=== PATIENT | female | born 2000 | race Hispanic/Latino ===

== ENCOUNTER 2023-07-16 18:20 | Emergency (ER) | payer OTHER ==
--- OUTSIDE RECORDS SUMMARY | 2023-07-16 18:38 | XMS REPORT | Continuity of Care Document ---
:2000 Author Organization [facility] t Address [address] [facility] [address] [place] [id number] Care Team Providers Name Role Phone Juan Francisco Elizabeth Attending Clinician Unavailable Davion RODRIGUEZ, Saloni Avina Attending Clinician Nataly Rios PA-C Attending Clinician Doctor Unassigned, [place] Attending Clinician Unavailable Payers Payer Name Policy Type Policy Number Effective Date Expiration Date S ource Problems Condition Condition Condition Status Onset Resolution Last Treating Co mments Source Name Details Category Date Date Treatment Clinician Date Morbid Morbid Disease Active Univers obesity obesity 2-13 [place] of with [place] mass index 00 [place] dical of of Branch 40.0-49.9 40.0-49.9 Presence Presence Disease Active Unive rs of of 52 of of 52 2-13 ity of mg mg 00:00: [place] levonorges levonorges 00 Me dical trel-relea trel-relea Br anch sing sing intrauteri intrauteri ne device ne device (IUD) (IUD) Acne Acne Disease Active Univers vulgaris vulgaris 8-15 ity of 00:00: [place] [address] Medical Branch Atopic Atopic Disease Active Overview: Univer s dermatitis dermatitis 8-15 ICD10 it y of and and 00:00: Diagnosis [place] related related 00 Term Medical 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 Allergic Allergic Problem Active Commo n rhinitis, rhinitis, Spir it unspecifie unspecifie - [facility] seasonalit seasonalit Shana kes y, y, Medical unspecifie unspecifie Ce nter d trigger d trigger Family Family Problem Active Common planning planning Spirit counseling counseling - [facility] Low back Low back Problem Active Commo n pain pain Spirit - [facility] Other Other Problem Active Common chronic chronic Spirit pain pain [facility] Allergies, Adverse Reactions, Alerts Allergy Allergy Status Severity Reaction(s) Onset Inactive Treating Comm ents Source Name Type Date Date Clinician Rustam Adverse Active Info Not Common (Diagnos Reaction Available Spi rit tic) [facility] Social History Social Habit Start Date Stop Date Quantity Comments Source History SDVT University o f Alcohol Std [place] Medical Drinks Branch History SDVT University o f Alcohol Binge [place] Medic al Branch Tobacco Comment No smoker in Univers ity of household [place] [facility] Sex Assigned At Universit y of [place] [facility] [place] Alcohol intake 2020-01-02 2020-01-02 University of 00:00:00 00:00:00 [place] [facility] History SDOH 2019-12-26 2019-12-26 1 University o f Alcohol Frequency 00:00:00 00:00:00 [facility] edical [place] Smoking Status Start Date Stop Date Source Never smoker [facility] Medications Ordered Filled Start Stop Current Ordering Indication Dosage Frequency Signature Comments Components Source Medication Medication Date Date Medication? 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 levonorgest 2020- No [id number] 1{devic 1 Device Univers rel 2-13 -13 e} by ity of (MIRENA) 20 00:00: 00:00 Intrauteri [place] mcg/24 00 :00 ne route Medical hours (5 once now Branch yrs) 52 mg for 1 IUD dose. miSOPROStol Yes [id number] Take one Univers 200 mcg 2-06 tablet ity of tablet 00:00: night [place] 00 before Medical procedure, Branch then take one tablet morning of procedure miSOPROStol 0 Yes [id number] Take one Univers 200 mcg 2-06 tablet ity of tablet 00:00: night [place] 00 before Medical procedure, Branch then take one tablet morning of procedure miSOPROStol 0 2020- No [id number] Take one Univers 200 mcg 2-06 02-13 tablet ity of tablet 00:00: 00:00 night [place] 00 :00 before Medical procedure, Branch then take one tablet morning of procedure miSOPROStol 2019-0 2020- No [id number] Take one Univers 200 mcg 2-06 02-13 tablet ity of tablet 00:00: 00:00 night [place] 00 :00 before Medical procedure, Branch then take one tablet morning of procedure Meloxicam Meloxicam 2020- No Elizabeth 1 tablet Common 12-10 02-20 Mill[place] as needed Spir it 00:00: 00:00 for pain; - [facility] 00 :00 take with [facility] or [facility] fluocinonid Yes [id number] Apply to Univers e (LIDEX) 8-15 area(s) 2 ity o f 0.05 % 00:00: (two) [place] ointment 00 times Medical daily. Branch tretinoin Yes [id number] Apply to Univers microsphere 8-15 affected ity of s (RETIN-A 00:00: [place] MICRO PUMP) 00 bedtime. Medi hafsa 0.04 % gel Branch clindamycin Yes [id number] Apply to Univers -benzoyl 8-15 area(s) ity of peroxide 00:00: every [place] (BENZACLIN) 00 morning. Medi hafsa gel Branch fluocinonid Yes [id number] Apply to Univers e (LIDEX) 8-15 area(s) 2 ity o f 0.05 % 00:00: (two) [place] ointment 00 times Medical daily. Branch tretinoin Yes [id number] Apply to Univers microsphere 8-15 affected ity of s (RETIN-A 00:00: area(s) [place] MICRO PUMP) 00 bedtime. Medi hafsa 0.04 % gel Branch clindamycin Yes [id number] Apply to Univers -benzoyl 8-15 area(s) ity of peroxide 00:00: every [place] (BENZACLIN) 00 morning. Medi hafsa gel Branch fluocinonid Yes [id number] Apply to Univers e (LIDEX) 8-15 area(s) 2 ity o f 0.05 % 00:00: (two) [place] ointment 00 times Medical daily. Branch tretinoin Yes [id number] Apply to Univers microsphere 8-15 affected ity of s (RETIN-A 00:00: area(s) [place] MICRO PUMP) 00 bedtime. Medi hafsa 0.04 % gel Branch clindamycin Yes [id number] Apply to Univers -benzoyl 8-15 area(s) ity of peroxide 00:00: every [place] (BENZACLIN) 00 morning. Medi hafsa gel Branch fluocinonid 2012- Yes [id number] Apply to Univers e (LIDEX) 8-15 area(s) 2 ity o f 0.05 % 00:00: (two) [place] ointment 00 times Medical daily. Branch tretinoin Yes [id number] Apply to Univers microsphere 8-15 affected ity of s (RETIN-A 00:00: area(s) at [place] MICRO PUMP) 00 bedtime. Medi hafsa 0.04 % gel Branch clindamycin Yes [id number] Apply to Univers -benzoyl 8-15 area(s) ity of peroxide 00:00: every [place] (BENZACLIN) 00 morning. Medi hafsa gel Branch fluocinonid 2012- Yes [id number] Apply to Univers e (LIDEX) 8-15 area(s) 2 ity o f 0.05 % 00:00: (two) [place] ointment 00 times Medical daily. Branch tretinoin Yes [id number] Apply to Univers microsphere 8-15 affected ity of s (RETIN-A 00:00: area(s) at [place] MICRO PUMP) 00 bedtime. Medi hafsa 0.04 % gel Branch clindamycin Yes [id number] Apply to Univers -benzoyl 8-15 area(s) ity of peroxide 00:00: every [place] (BENZACLIN) 00 morning. Medi hafsa gel Branch fluocinonid Yes [id number] Apply to Univers e (LIDEX) 8-15 area(s) 2 ity o f 0.05 % 00:00: (two) [place] ointment 00 times Medical daily. Branch tretinoin Yes [id number] Apply to Univers microsphere 8-15 affected ity of s (RETIN-A 00:00: area(s) at [place] MICRO PUMP) 00 bedtime. Medi hafsa 0.04 % gel Branch clindamycin Yes [id number] Apply to Univers -benzoyl 8-15 area(s) ity of peroxide 00:00: every [place] (BENZACLIN) 00 morning. Medi hafsa gel Branch fluticasone Yes Apply BID U nivers (CUTIVATE) 3-14 to eczema ity of 0.05 % 00:00: prn itchy [place] cream 00 Medical Branch doxycycline Yes 100mg Take 1 Tab Univers (VIBRA-TABS 3-14 by mouth 2 it y of ) 100 mg 00:00: (two) [place] tablet 00 times Medical daily. Branch clindamycin Yes Apply to Un fe -benzoyl 3-14 affected ity of peroxide 00:00: area(s) [place] (BENZACLIN 00 every Medical PUMP) gel morning. Branch fluticasone Yes Apply BID U nivers (CUTIVATE) 3-14 to eczema ity of 0.05 % 00:00: prn itchy [place] cream 00 Medical Branch doxycycline Yes 100mg Take 1 Tab Univers (VIBRA-TABS 3-14 by mouth 2 it y of ) 100 mg 00:00: (two) [place] tablet 00 times Medical daily. Branch clindamycin Yes Apply to Un fe -benzoyl 3-14 affected ity of peroxide 00:00: area(s) [place] (BENZACLIN 00 every Medical PUMP) gel morning. Branch fluticasone Yes Apply BID U nivers (CUTIVATE) 3-14 to eczema ity of 0.05 % 00:00: prn itchy [place] cream 00 Medical Branch doxycycline Yes 100mg Take 1 Tab Univers (VIBRA-TABS 3-14 by mouth 2 it y of ) 100 mg 00:00: (two) [place] tablet 00 times Medical daily. Branch clindamycin Yes Apply to Un fe -benzoyl 3-14 affected ity of peroxide 00:00: area(s) [place] (BENZACLIN 00 every Medical PUMP) gel morning. Branch fluticasone Yes Apply BID U nivers (CUTIVATE) 3-14 to eczema ity of 0.05 % 00:00: prn itchy [place] cream 00 Medical Branch doxycycline Yes 100mg Take 1 Tab Univers (VIBRA-TABS 3-14 by mouth 2 it y of ) 100 mg 00:00: (two) [place] tablet 00 times Medical daily. Branch clindamycin Yes Apply to Un fe -benzoyl 3-14 affected ity of peroxide 00:00: area(s) [place] (BENZACLIN 00 every Medical PUMP) gel morning. Branch fluticasone Yes Apply BID U nivers (CUTIVATE) 3-14 to eczema ity of 0.05 % 00:00: prn itchy [place] cream 00 Medical Branch doxycycline Yes 100mg Take 1 Tab Univers (VIBRA-TABS 3-14 by mouth 2 it y of ) 100 mg 00:00: (two) [place] tablet 00 times Medical daily. Branch doxycycline Yes 100mg Take 1 Tab Univers (VIBRA-TABS 3-14 by mouth 2 it y of ) 100 mg 00:00: (two) [place] tablet 00 times Medical daily. Branch clindamycin Yes Apply to Un fe -benzoyl 3-14 affected ity of peroxide 00:00: area(s) [place] (BENZACLIN 00 every Medical PUMP) gel morning. Branch fluticasone Yes Apply BID U nivers (CUTIVATE) 3-14 to eczema ity of 0.05 % 00:00: prn itchy [place] cream [address] [place] [address] Branch clindamycin Yes Apply to Un fe -benzoyl 3-14 affected ity of peroxide 00:00: area(s) [place] (BENZACLIN 00 every Medical PUMP) gel morning. Branch Vital Signs Vital Name Observation Time Observation Value Comments Source BMI 2020-01-02 21:18:00 46.80 kg/m2 [facility] Systolic blood 2020-01-02 21:18:00 126 mm[Hg] Univer sity of [facility] Diastolic blood 2020-01-02 21:18:00 88 mm[Hg] Unive rsity of [facility] Heart rate 2020-01-02 21:18:00 84 /min [facility] Body temperature 2020-01-02 21:18:00 36.78 Cori [facility] Respiratory rate 2020-01-02 21:18:00 18 /min [facility] Body height 2020-01-02 21:18:00 [facility] weight 2020-01-02 21:18:00 117.935 kg [facility] Systolic blood 2019-12-26 16:20:00 123 mm[Hg] Univer sity of [facility] Diastolic blood 2019-12-26 16:20:00 88 mm[Hg] Unive rsity of [facility] Heart rate 2019-12-26 16:20:00 85 /min [facility] Body temperature 2019-12-26 16:20:00 36.83 Cori [facility] Respiratory rate 2019-12-26 16:20:00 18 /min [facility] Body height 2019-12-26 16:20:00 157[facility]5 [facility] Body weight 2019-12-26 16:20:00 117.754 kg [facility] BMI 2019-12-26 16:20:00 47.48 kg/m2 [facility] Procedures Procedure Date / Time Performed Performing Clinician Sour e POCT TEST 2020-01-02 00:00:00 Saloni Ricardo [facility] ASSIGNMENT OF BENEFITS 2019-12-26 16:02:59 Doctor Unassigned, No [facility] Encounters Start End Encounter Admission Attending Care Care Encounter Source Date/Time Date/Time Type Type Clinicians Facility Department ID 2021-12-15 Outpatient NEO Chicas [facility] [id number] Common 11:02:13 Elizabeth [id number] [facility] 2020-01-08 2020-01-08 Telephone Saloni Ricardo [facility] [id number] Univers 00:00:00 00:00:00 Fabrice Granger [id number] i ty of [place] [id number] [place] Profess[place] [phone] La dical [place]al [address] [place] [address] 2020-01-02 2020-01-02 Office Saloni Ricardo [facility] [id number] Univers 14:52:26 15:51:41 Visit Fabrice Granger [id number] i ty of [place] [id number] [place] Profess[place] [phone] La dical [place]al [address] [place] [address] 2019-12-26 2019-12-26 Office Blanca [facility] [id number] Univers 10:05:48 10:46:43 Visit Nataly Granger [id number] i ty of [place] [id number] [place] Profess[place] [phone] La dical [place]al [address] [place] [address] 2019-12-26 2019-12-26 Orders Doctor CHEW [id number] Univers 00:00:00 00:00:00 Only Unassigned, BEATRIZ [id number] ity of [place] [facility] [id number] Maulik as [phone] [address] 2019-12-11 2019-12-11 [id number] Common 01:09:00 01:09:00 t [facility] [address] [facility] 2019-12-10 2019-12-10 [facility] [id number] Common 15:15:00 15:15:00 t [facility] [address] [facility] Results Test Description Test Time Test Comments Results Result Comments Source POCT TEST 2020-01-02 21:15:00 Test Item Value Reference Range Interpretation Comme nts POCT PREG (test code = 1605) Negative On board controls acceptable with C Line (test code = 3574) Yes POCT PREG LOT # (test code = 3575) POCT PREG TEST DATE (test code = 3576[id number] 21:15:00 Test Item Value Reference Range Interpretation Comments POCT PREG (test code = 1605) Negative On board controls acceptable with C Yes Line (test code = 3574) POCT PREG LOT # (test code = 3575) POCT PREG TEST DATE (test code = 3576) [facility]
--- NOTE | 2023-07-16 19:35 | ER ---
Nurse's Notes [facility] Name: Bert Reyes Age: 22 yrs Sex: Female : 2000 Arrival Date: 07/16/2023 Time: 18:20 Bed IW1 Private MD: Diagnosis: Presentation: 07/16 18:49 Chief complaint: Patient states: LLQ abdominal pain post intercourse, pain is resolving jl7 at this time but wants to get checked out and find out why this keeps happening. Coronavirus screen: At this time, the client does not indicate any symptoms associated with coronavirus-19. Ebola Screen: No symptoms or risks identified at this time. Initial Sepsis Screen: Does the patient meet any 2 criteria? No. Patient's initial sepsis screen is negative. Does the patient have a suspected source of infection? No. Patient's initial sepsis screen is negative. Risk Assessment: Do you want to hurt yourself or someone else? Patient reports no desire to harm self or others. Onset of symptoms is unknown. 18:49 Method Of Arrival: Ambulatory jl7 18:49 Acuity: SYLVIA 3 jl7 Triage Assessment: 18:50 General: Appears in no apparent distress. uncomfortable, Behavior is calm, cooperative, jl7 appropriate for age. Pain: Complains of pain in left lower quadrant Pain currently is 4 out of 10 on a pain scale. at worst was 10 out of 10 on a pain scale. GI: Abdomen is non-distended. 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 - Social history:: Smoking status: Patient denies any tobacco usage or history of. Screenin:24 [facility] ED Fall Risk Assessment (Adult) History of falling in the last 3 months, vc1 including since admission No falls in past 3 months (0 pts) Confusion or Disorientation No (0 pts) Intoxicated or Sedated No (0 pts) Impaired Gait No (0 pts) Mobility Assist Device Used No (0 pt) Altered Elimination No (0 pt) Score/Fall Risk Level 0 - 2 = Low Risk Oriented to surroundings, Maintained a safe environment, Educated pt \T\ family on fall prevention, incl call for assistance when getting out of bed. Abuse screen: Denies threats or abuse. Nutritional screening: No deficits noted. Tuberculosis screening: No symptoms or risk factors identified. Assessment: 19:20 Reassessment: Pt. not in room, called from lobby, unable to locate. vc1 Vital Signs: 18:49 BP 128 / 73; Pulse 76; Resp 17; Temp 97.7; Pulse Ox 100% ; Weight 88 kg; Height 5 ft. 2 jl7 in. ; Pain 4/10; 18:49 Body Mass Index 35.48 (88.00 kg, 157.48 cm) jl7 18:49 Pain Scale: Adult jl7 ED Course: 18:23 Patient arrived in ED. mr 18:34 [facility]C [facility] snw 18:34 Abhay Merida MD is Attending Physician. snw 18:50 Triage completed. jl7 18:50 Arm band placed on right wrist. jl7 19:19 Trice Kay, RN is Primary Nurse. vc1 19:34 No provider procedures requiring assistance completed. Patient did not have IV access vc1 during this emergency room visit. Administered Medications: No medications were administered Medication: 19:24 VIS not applicable for this client. vc1 Outcome: 19:34 Eloped from patient exam room, before seeing physician post triage evaluation and vc1 consult. Pt stated she wasn't hurting anymore. Could not be located when called to exam room 19:35 Patient left the ED. vc1 Signatures: Sarah Peng FNP-C BOAT DRIVER-Misti Shavonne GarciaSen, RN RN [email or web address] Trice Kay, IRMA RN vc1 Corrections: (The following items were deleted from the chart) 18:50 18:50 Allergies: NKA; jl7 jl7 19:33 19:24 Patient has correct armband on for positive identification. Bed in low position. vc1 vc1
--- NOTE | 2023-07-17 19:35 | EDPHYS ---
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 - Social history:: Smoking status: Patient denies any tobacco usage or history of. ROS: 19:36 Constitutional: Negative for fever, chills, and weight loss, Eyes: Negative for injury, snw pain, redness, and discharge, ENT: Negative for injury, pain, and discharge, Neck: Negative for injury, pain, and swelling, Cardiovascular: Negative for chest pain, palpitations, and edema, Respiratory: Negative for shortness of breath, cough, wheezing, and pleuritic chest pain, Back: Negative for injury and pain, : Negative for injury, bleeding, discharge, and swelling, MS/Extremity: Negative for injury and deformity, Skin: Negative for injury, rash, and discoloration, Neuro: Negative for headache, weakness, numbness, tingling, and seizure, Psych: Negative for depression, anxiety, suicide ideation, homicidal ideation, and hallucinations. 19:36 Abdomen/GI: Positive for abdominal cramps, of the left lower quadrant, postcoital. Vital Signs: 18:49 BP 128 / 73; Pulse 76; Resp 17; Temp 97.7; Pulse Ox 100% ; Weight 88 kg; Height 5 ft. 2 jl7 in. ; Pain 4/10; 18:49 Body Mass Index 35.48 (88.00 kg, 157.48 cm) jl7 18:49 Pain Scale: Adult jl7 MDM: 19:16 Patient medically screened. snw 19:35 Differential diagnosis: non-specific abd pain, Ovarian Torsion, Pyelonephritis, Tubal snw Ovarian Abcess. Data reviewed: vital signs, nurses notes. Awaiting: pt, no pt in bed 11 at 1917, 1925, 1935. Administered Medications: No medications were administered Disposition Summary: 07/16/23 19:35 Eloped Disposition: before being seen by provider vc1 Reason: (see nurse's notes) vc1 Signatures: Dispatcher [employer] Sarah Laird FNP-C PORTRAIT PHOTOGRAPHER-Sen Michelle RN RN jl7 Trice Kay RN RN vc1 Corrections: (The following items were deleted from the chart) 18:50 18:50 Allergies: NKA; jlMarilynn harris
== END 2023-07-16 19:35 | disposition left against medical advice (07) ==
LOC: ER 18:20
DX: Z53.21 Procedure and treatment not carried out due to patient leaving prior to being seen by health care provider (principal)
CPT/HCPCS: 99281

== ENCOUNTER 2024-11-17 15:50 | Emergency (ER) | payer OTHER ==
--- OUTSIDE RECORDS SUMMARY | 2024-11-17 15:53 | XMS REPORT | Continuity of Care Document ---
Author Name Unknown Address [address] [place] [address] [facility] [address] [place] [address] Care Team Providers Care Netezza Architect Name Role Phone Andrzej Frazier MD Primary Care Physician + [phone] Elizabeth Chicas Attending Clinician Unavailable JAYLYN EDDY Attending Clinician Unavailable Shabana Naranjo NP Attending Clinician [phone] ANDRZEJ FRAZIER Attending Clinician Unavailab ANDRZEJ Briceno Attending Clinician Unavailab SHABANA Walker Attending Clinician Unavailable SHABANA NARANJO Attending Clinician Unavailable 2, [facility] Attending Clinician Unavailable KRISTI PATEL Attending Clinician UnavailKristi Hernandez NP Attending Clinician [phone] KAREN RUBIO Attending Clinician Unavailable KAREN RUBIO Attending Clinician Unavailable Karen Rubio MD Attending Clinician [phone] DERIK RUEDA Attending Clinician Unavaila ble TRITSCHLER, CHERYAL Attending Clinician Unavaila ara Doctor Unassigned, [place] Attending Clinician U navailable DL LOWE Attending Clinician Unavailable Dl Lowe MD Attending Clinician [phone] 2, [facility] Attending Clinician Unavailable Saloni Ricardo MD Attending Clinician [phone] Nataly Rios PA-C Attending Clinician [phone] KAREN RUBIO Admitting Clinician Unavailable DERIK RUEDA Admitting Clinician UnavailDL [place] Admitting Clinician Unavailable Payers Payer Name Policy Type Policy Number Effective Date Expirati on Date Source DRE [id number] 2024 00:00:00 [facility] [id number] 2019 00:00:00 [facility] [id number] 2019 00:00:00 07-20 00:00:00 Problems Condition Name Condition Details Condition Category Status Onset Date Resolution Date Last Treatment Date Treating Clinician Comments Source Hypokalemi a Hypokalemi a Disease Active 2023-11 00:00: 00 [facility] Nausea and vomiting, unspecifie d vomiting type Nausea and vomiting, unspecifie d vomiting type Disease Active 2023-11 00:00: 00 [facility] Cannabis hyperemesi s syndrome concurrent with and due to cannabis dependence Cannabis hyperemesi s syndrome concurrent with and due to cannabis dependence Disease Active 2023-11 00:00: 00 [facility] Morbid obesity with body mass index of 40.0-49.9 Morbid obesity with body mass index of 40.0-49.9 Disease Active 01-02 00:00: 00 [facility] Acne vulgaris Acne vulgaris Disease Active 07-04 00:00: 00 [facility] Atopic dermatitis and related condition Atopic dermatitis and related condition Disease Active 07-04 00:00: 00 Overview: Formattin g of this note might be different from the original. ICD10 Diagnosis Term [employer] [facility] Allergic rhinitis, unspecifie d seasonalit y, unspecifie d trigger Allergic rhinitis, unspecifie d seasonalit y, unspecifie d trigger Problem Active [facility] Family planning counseling Family planning counseling Problem Active [facility] Low back pain Low back pain Problem Active [facility] Other chronic pain Other chronic pain Problem Active [facility] Morbid obesity with body mass index of 40.0-49.9 Morbid obesity with body mass index of 40.0-49.9 Disease Resolve d 2019- 2-13 00:00: 00 2023-08-09 00:00:00 2023-08-09 12:57:41 [facility] Presence of of 52 mg levonorges trel-relea sing intrauteri ne device (IUD) Presence of of 52 mg levonorges trel-relea sing intrauteri ne device (IUD) Disease Resolve d 2-13 00:00: 00 2023-08-09 00:00:00 2023-08-09 12:57:31 [facility] Allergies, Adverse Reactions, Alerts Allergy Name Allergy Type Status Severity Reaction(s) Onset Date Inactive Date Treating Clinician Comments Source [place] (Diagnos tic) Adverse Reaction Active Info Not Available [facility] NO KNOWN ALLERGIE S Drug Class Active [facility] Social History Social Habit Start Date Stop Date Quantity Comments Source History SDOH Alcohol Std Drinks [facility] History SDOH Alcohol Binge [facility] Gender identity [facility] Sexual orientation [facility] Alcoholic beverage intake 2024-10-29 00:00:00 2024-10-29 00:00:00 Current drinker of alcohol (finding) [facility] Alcohol intake 2023-08-09 00:00:00 2023-08-09 00:00:00 Current drinker of alcohol (finding) [facility] Tobacco Comment 2023-07-17 00:00:00 2023-07-17 00:00:00 No smoker in household [facility] Tobacco use and exposure 2023-07-17 00:00:00 2023-07-17 00:00:00 Smokeless tobacco non-user [facility] History of Social function 2023-07-17 00:00:00 2023-07-17 00:00:00 [facility] History SDOH Alcohol Frequency 2019-12-26 00:00:00 2019-12-26 00:00:00 1 [facility] Sex assigned at 2000 00:00:00 2000 00:00:00 [facility] Smoking Status Start Date Stop Date Source Never smoked tobacco [facility] Medications Ordered Medication Name Filled Medication Name Start Date Stop Date Current Medication? Ordering Clinician Indication Dosage Frequency Signature (SIG) Comments Components Source polyethylen e glycol 3350 (MIRALAX) 17 gram/dose powder 2023-11 00:00: 00 11-15 05:59 :00 Yes [id number] 17g Take 17 g by mouth in the morning and 17 g in the evening. Do all this for 15 days. [facility] ondansetron 4 mg disintegrat ing tablet 2023-11 00:00: 00 Yes [id number] 4mg Take 1 tablet by mouth every 8 (eight) hours as needed for Nausea and Vomiting (N/V). [facility] NaCl 0.9% (NS) bolus infusion 1,000 mL 2023-11 23:00: 00 10-25 00:42 :00 No 1000mL at 999 mL/hr, 1,000 mL, IV Infusion, ONCE, 1 dose, On Renee 10/24/24 at 1700, GRADY [facility] KCL (KLOR-CON M20) tablet 40 mEq 2023-11 23:00: 00 10-24 22:57 :00 No 40meq 40 mEq, Oral, ONCE, 1 dose, On Renee 10/24/24 at 1700, GRADY [facility] proMETHazin e (PHENERGAN) 25 mg in NS 50 mL IV piggyback (CNR) 2023-11 22:30: 00 10-24 23:17 :00 No 25mg 25 mg, IV Piggyback, at 200 mL/hr Administer over 15 Minutes, ONCE, 1 dose, On Renee 10/24/24 at 1630, GR[facility] iopamidol (ISOVUE 370-500 mL) injection 90 mL 2023-11 13:45: 00 10-24 13:45 :00 No [id number] 90mL 90 mL, Intravenou s, ONCE, 1 dose, On Renee 10/24/24 at 0745, Routine [facility] metoclopram leena HCl (REGLAN) injection 10 mg 2023-11 13:30: 00 10-24 13:32 :00 No 10mg 10 mg, Slow IV Push, ONCE, 1 dose, On Renee 10/24/24 at 0730, GRADY [facility] ketorolac (TORADOL) injection 30 mg 2023-11 13:00: 00 10-24 12:03 :00 No 30mg 30 mg, Slow IV Push, ONCE, 1 dose, On Renee 10/24/24 at 0700, Routine [facility] dicyclomine (BENTYL) injection 20 mg 2023-11 12:45: 00 10-24 12:04 :00 No 20mg 20 mg, Intramuscu lar, ONCE NOW, 1 dose, On Renee 10/24/24 at 0645, Routine [facility] ondansetron (ZOFRAN (PF)) injection 4 mg 2023-11 12:00: 00 10-24 12:07 :00 No 4mg 4 mg, Slow IV Push, ONCE, 1 dose, On Renee 10/24/24 at 0600, Administer over 2-5 Minutes, 2 mL [facility] dicyclomine 20 mg tablet 2023-11 00:00: 00 Yes [id number] 20mg Take 1 tablet by mouth 4 (four) times daily. [facility] metoclopram leena HCl 10 mg tablet 2023-11 00:00: 00 Yes [id number] 10mg Take 1 tablet by mouth every 6 (six) hours. [facility] famotidine 20 mg tablet 2023-11 00:00: 00 Yes [id number] 20mg Take 1 tablet by mouth in the morning and 1 tablet in the evening. [facility] iopamidol (ISOVUE 370-500 mL) injection 82 mL 07-27 18:30: 00 07-27 18:30 :00 No [id number] 82mL 82 mL, Intravenou s, ONCE, 1 dose, On Renee 07/27/23 at 1330, Routine [facility] maalox:diph enhydrAMINE :lidocaine 2 % viscous 1:1:1 ([facility]) oral suspension 15 mL 07-27 16:45: 00 07-27 17:15 :00 No 15mL 15 mL, Oral, ONCE, 1 dose, On Renee 07/27/23 at 1145, Routine [facility] FENTanyl PF (SUBLIMAZE (PF)) injection 50 mcg 07-27 16:45: 00 07-27 17:14 :00 No 50ug 50 mcg, Slow IV Push, ONCE, 1 dose, On Renee 07/27/23 at 1145, STAT [facility] ondansetron (ZOFRAN (PF)) injection 4 mg 07-27 16:45: 00 07-27 17:14 :00 No 4mg 4 mg, Slow IV Push, ONCE, 1 dose, On Renee 07/27/23 at 1145, GRADY [facility] NaCl 0.9% (NS) bolus infusion 1,000 mL 07-27 16:00: 00 07-27 18:27 :00 No 1000mL at 999 mL/hr, 1,000 mL, IV Infusion, ONCE, 1 dose, On Renee 07/27/23 at 1100, [facility] dicyclomine 20 mg tablet 07-27 00:00: 00 10-24 00:00 :00 No [id number] 20mg Take 1 tablet by mouth in the morning and 1 tablet at noon and 1 tablet in the evening. [facility] levonorgest rel (MIRENA) IUD 1 Device -14 00:15: 00 2020- 02-13 23:12 :00 No 1{devic e} [facility] levonorgest rel (MIRENA) 20 mcg/24 hours (5 yrs) 52 mg IUD 01-02 00:00: 00 01-02 00:00 :00 No [id number] 1{devic e} 1 Device by Intrauteri ne route once now for 1 dose. [facility] miSOPROStol 200 mcg tablet 12-26 00:00: 00 01-02 00:00 :00 No [id number] Take one tablet night before procedure, then take one tablet morning of procedure [facility] Meloxicam Meloxicam 12-10 00:00: 00 01-09 00:00 :00 No Elizabeth Millender 1 tablet as needed for pain; take with food or milk [facility] fluocinonid e (LIDEX) 0.05 % ointment 07-04 00:00: 00 07-17 00:00 :00 No [id number] Apply to area(s) 2 (two) times daily. [facility] tretinoin microsphere s (RETIN-A MICRO PUMP) 0.04 % gel 07-04 00:00: 00 07-17 00:00 :00 No [id number] Apply to affected area(s) at bedtime. [facility] clindamycin -benzoyl peroxide (BENZACLIN) gel 07-04 00:00: 00 07-17 00:00 :00 No [id number] Apply to area(s) every morning. [facility] doxycycline (VIBRA-TABS ) 100 mg tablet 01-31 00:00: 00 07-17 00:00 :00 No 100mg Take 1 Tab by mouth 2 (two) times daily. [facility] clindamycin -benzoyl peroxide (BENZACLIN PUMP) gel 01-31 00:00: 00 07-17 00:00 :00 No Apply to affected area(s) every morning. [facility] fluticasone (CUTIVATE) 0.05 % cream 0 3-14 00:00: 00 07-17 00:00 :00 No Apply BID to eczema prn itchy [facility] Vital Signs Vital Name Observation Time Observation Value Comments S macey Systolic blood pressure 2024-10-29 19:03:00 126 mm[Hg] [facility] Diastolic blood pressure 2024-10-29 19:03:00 89 mm[Hg] [facility] Heart rate 2024-10-29 19:01:00 98 /min Un[facility] Body temperature 2024-10-29 19:01:00 37.06 Cori [facility] Respiratory rate 2024-10-29 19:01:00 18 /min [facility] Body height 2024-10-29 19:01:00 157.5 cm [facility] Body weight 2024-10-29 19:01:00 112.311 kg Univ [facility] BMI 2024-10-29 19:01:00 45.29 kg/m2 [facility] Oxygen saturation in Arterial blood by Pulse oximetry 2024-10-29 19:01:00 97 /min [facility] Systolic blood pressure 2024-10-25 00:00:00 99 mm[Hg] [facility] Diastolic blood pressure 2024-10-25 00:00:00 79 mm[Hg] [facility] Heart rate 2024-10-25 00:00:00 83 /min [facility] Body temperature 2024-10-25 00:00:00 36.83 Cori [facility] Respiratory rate 2024-10-25 00:00:00 18 /min [facility] Oxygen saturation in Arterial blood by Pulse oximetry 2024-10-25 00:00:00 100 /min [facility] Body height 2024-10-24 21:52:00 157.5 cm [facility] Body weight 2024-10-24 21:52:00 113.399 kg [facility] BMI 2024-10-24 21:52:00 45.73 kg/m2 [facility] Systolic blood pressure 2024-10-24 13:56:00 153 mm[Hg] [facility] Diastolic blood pressure 2024-10-24 13:56:00 107 mm[Hg] [facility] Heart rate 2024-10-24 13:56:00 75 /min [facility] Body temperature 2024-10-24 13:56:00 36.61 Cori [facility] Respiratory rate 2024-10-24 13:56:00 16 /min [facility] Oxygen saturation in Arterial blood by Pulse oximetry 2024-10-24 13:56:00 96 /min [facility] Body height 2024-10-24 11:33:00 157.5 cm [facility] Body weight 2024-10-24 11:33:00 113.399 kg [facility] BMI 2024-10-24 11:33:00 45.73 kg/m2 [facility] Systolic blood pressure 2023-08-09 16:03:00 128 mm[Hg] [facility] Diastolic blood pressure 2023-08-09 16:03:00 82 mm[Hg] [facility] Heart rate 2023-08-09 16:03:00 62 /min [facility] Respiratory rate 2023-08-09 16:03:00 18 /min [facility] Body height 2023-08-09 16:03:00 157.5 cm [facility] Body weight 2023-08-09 16:03:00 90.719 kg [facility] BMI 2023-08-09 16:03:00 36.58 kg/m2 [facility] Systolic blood pressure 2023-07-27 17:00:00 134 mm[Hg] [facility] Diastolic blood pressure 2023-07-27 17:00:00 76 mm[Hg] [facility] Heart rate 2023-07-27 17:00:00 54 /min [facility] Respiratory rate 2023-07-27 17:00:00 14 /min [facility] Oxygen saturation in Arterial blood by Pulse oximetry 2023-07-27 17:00:00 98 /min [facility] Body temperature 2023-07-27 14:57:00 36.61 Cori [facility] Body weight 2023-07-27 14:57:00 88.451 kg [facility] BMI 2023-07-27 14:57:00 35.67 kg/m2 [facility] Systolic blood pressure 2023-07-26 14:01:00 128 mm[Hg] [facility] Diastolic blood pressure 2023-07-26 14:01:00 90 mm[Hg] [facility] Heart rate 2023-07-26 14:01:00 72 /min [facility] Body temperature 2023-07-26 14:01:00 36.39 Cori [facility] Body height 2023-07-26 14:01:00 157.5 cm [facility] Body weight 2023-07-26 14:01:00 88.905 kg [facility] BMI 2023-07-26 14:01:00 35.85 kg/m2 [facility] Oxygen saturation in Arterial blood by Pulse oximetry 2023-07-26 14:01:00 98 /min [facility] Systolic blood pressure 2023-07-17 18:23:00 124 mm[Hg] [facility] Diastolic blood pressure 2023-07-17 18:23:00 79 mm[Hg] [facility] Heart rate 2023-07-17 18:23:00 61 /min [facility] Body temperature 2023-07-17 18:23:00 36.5 Cori [facility] Body height 2023-07-17 18:23:00 157.5 cm [facility] Body weight 2023-07-17 18:23:00 89.676 kg [facility] BMI 2023-07-17 18:23:00 36.16 kg/m2 [facility] Oxygen saturation in Arterial blood by Pulse oximetry 2023-07-17 18:23:00 98 /min [facility] Systolic blood pressure 2020-01-02 21:18:00 126 mm[Hg] [facility] Diastolic blood pressure 2020-01-02 21:18:00 88 mm[Hg] [facility] Heart rate 2020-01-02 21:18:00 84 /min [facility] Body temperature 2020-01-02 21:18:00 36.78 Cori [facility] Respiratory rate 2020-01-02 21:18:00 18 /min [facility] Body height 2020-01-02 21:18:00 158.8 cm [facility] Body weight 2020-01-02 21:18:00 117.935 kg [facility] BMI 2020-01-02 21:18:00 46.80 kg/m2 [facility] Systolic blood pressure 2019-12-26 16:20:00 123 mm[Hg] [facility] Diastolic blood pressure 2019-12-26 16:20:00 88 mm[Hg] [facility] Heart rate 2019-12-26 16:20:00 85 /min [facility] Body temperature 2019-12-26 16:20:00 36.83 Cori [facility] Respiratory rate 2019-12-26 16:20:00 18 /min [facility] Body height 2019-12-26 16:20:00 157.5 cm [facility] Body weight 2019-12-26 16:20:00 117.754 kg [facility] BMI 2019-12-26 16:20:00 47.48 kg/m2 [facility] Procedures Procedure Date / Time Performed Performing Clinician Source XR KUB 2024-10-29 20:43:00 Shabana Naranjo [facility] CBC WITH DIFF 2024-10-29 20:14:00 Shabana Naranjo [facility] URINE DRUG (IMMUNOASSAY) - COMPREHENSIVE DRUG SCREEN W/O REFLEX 2024-10-24 22:45:00 Kristi Patel [facility] LIPASE 2024-10-24 22:16:00 [facility] COMP. METABOLIC PANEL ([id number]) 2024-10-24 22:16:00 Kristi Patel [facility] CBC WITH DIFF 2024-10-24 22:16:00 Kristi Patel [facility] CT ABDOMEN PELVIS W CONTRAST 2024-10-24 12:53:09 Karen Rubio [facility] LIPASE 2024-10-24 11:48:00 Karen Rubio [facility] COMP. METABOLIC PANEL ([id number]) 2024-10-24 11:48:00 Karen Rubio [facility] CBC WITH DIFF 2024-10-24 11:48:00 Karen Rubio [facility] URINALYSIS 2024-10-24 11:48:00 Karen Rubio [facility] POCT TEST 2024-10-24 11:47:00 Karen Rubio [facility] US PELVIS COMPLETE WITH TRANSVAGINAL 2023-08-17 16:21:57 Derik Rueda [facility] PATIENT QUESTIONNAIRE 2023-08-11 05:01:00 Doctor Unassigned, [place] [facility] CT ABDOMEN PELVIS W CONTRAST 2023-07-27 17:30:58 Dl Lowe [facility] URINALYSIS 2023-07-27 15:53:00 Dl Lowe [facility] COMP. METABOLIC PANEL ([id number]) 2023-07-27 15:51:00 Dl Lowe [facility] CBC WITH DIFF 2023-07-27 15:51:00 Dl Lowe [facility] NOTICE OF PRIVACY PRACTICES 2023-07-27 14:29:35 Doctor Unassigned, [place] [facility] CONSENT/REFUSAL FOR DIAGNOSIS AND TREATMENT 2023-07-27 14:26:24 Doctor Unassigned, [place] [facility] ASSIGNMENT OF BENEFITS 2023-07-17 18:15:31 Docto r Unassigned, [place] [facility] POCT TEST 2020-01-02 00:00:00 Saloni Ricardo [facility] ASSIGNMENT OF BENEFITS 2019-12-26 16:02:59 Docto r Unassigned, [place] [facility] Encounters Start Date/Time End Date/Time Encounter Type Admission Type Attending Clinicians Care Facility Care Department Encounter ID Source 2021-12-15 11:02:13 Outpatient Elizabeth Chicas [facility] [id number] [facility] 2024-11-04 11:00:00 2024-11-04 11:00:00 Outpatient JAYLYN CHRISTIANSON [facility] [id number] [facility] 2024-10-30 00:00:00 2024-10-30 19:51:24 Telephone Shabana Naranjo [facility] 1..840.114 350.1.13.10 4.2.7.2.686 [id number] [facility] 2024-10-30 11:20:00 2024-10-30 11:20:00 Outpatient R OBI-BISHNU , ANDRZEJ OBI-BISHNU , ANDRZEJ [facility] [id number] [facility] 2024-10-29 14:26:27 2024-10-29 23:59:00 Hospital Encounter Shabana Naranjo [facility] 1..840.114 350.1.13.10 4.2.7.2.686 [id number] [facility] 2024-10-29 14:26:26 2024-10-29 23:59:00 Outpatient R SHABANA NARANJO JEENA [facility] [id number] [facility] 2024-10-29 14:15:00 2024-10-29 14:30:00 Manager Balance Visit 2, [facility] Shabana Naranjo 2, Adc Lab [facility] 1..840.114 350.1.13.10 4.2.7.2.686 [id number] [facility] 2024-10-29 13:00:00 2024-10-29 14:03:40 [facility] 1..840.114 350.1.13.10 4.2.7.2.686 [id number] [facility] 2024-10-24 15:56:00 2024-10-24 18:44:00 Emergency X KRISTI PATEL [facility] [id number] [facility] 2024-10-24 15:56:00 2024-10-24 18:44:00 Emergency AdeKristi ríos [facility] 1..840.114 350.1.13.10 4.2.7.2.686 [id number] [facility] 2024-10-24 05:36:00 2024-10-24 07:58:00 Emergency X KAREN RUBIO WAKILI [facility] [id number] [facility] 2024-10-24 05:36:00 2024-10-24 07:58:00 Emergency Karen Rubio aHnh [facility] 1..840.114 350.1.13.10 4.2.7.2.686 [id number] [facility] 2023-08-17 10:16:21 2023-08-17 23:59:00 Outpatient R DERIK RUEDA CHERYAL [facility] [id number] [facility] 2023-08-17 10:16:21 2023-08-17 23:59:00 Hospital Encounter Derik Rueda [facility] 1..840.114 350.1.13.10 4.2.7.2.686 [id number] [facility] 2023-08-14 14:30:00 2023-08-14 14:30:00 [facility] [id number] [facility] 2023-08-11 00:00:00 2023-08-11 00:00:00 Orders Only Doctor Unassigned, [place] [facility] 1..114 350.1.13.10 4.2.7.2.686 [id number] [facility] 2023-08-09 10:30:00 2023-08-09 11:12:05 Outpatient R DERIK RUEDA CHERYAL [facility] [id number] [facility] 2023-08-09 10:30:00 2023-08-09 11:12:05 Office Visit Derik Rueda [facility] 1.114 350.1.13.10 4.2.7.2.686 [id number] [facility] 2023-07-27 09:59:00 2023-07-27 13:33:00 Emergency X DL LOWE [facility] [id number] [facility] 2023-07-27 09:59:00 2023-07-27 13:33:00 Emergency Dl Lowe [facility] 1..114 350.1.13.10 4.2.7.2.686 [id number] [facility] 2023-07-26 09:00:00 2023-07-26 09:27:31 Outpatient R OBI-BISHNUANDRZEJ Sánchez [facility] [id number] [facility] 2023-07-26 09:00:00 2023-07-26 09:27:31 Office Visit Obi-Andrzej Goetz [facility] 1..114 350.1.13.10 4.2.7.2.686 [id number] [facility] 2023-07-18 14:30:00 2023-07-18 14:30:00 Outpatient [facility] [id number] [facility] 2023-07-18 10:30:00 2023-07-18 10:30:00 Outpatient R NIRUDERIK ZAVALA [facility]PP[facility]N [facility] [id number] [facility] 2023-07-17 14:00:00 2023-07-17 14:15:00 Manager Balance Visit 2, [facility] 1.2840.114 350.1.13.10 4.2.7.2.686 [id number] [facility] 2023-07-17 13:20:00 2023-07-17 13:51:23 Outpatient R OBI-ANDRZEJ GOETZ [facility] [id number] [facility] 2023-07-17 13:20:00 2023-07-17 13:51:23 Office Visit Hu-Andrzej Goetz [facility] [id number] 350.1.13.10 4.2.7.2.686 [id number] [facility] 2023-07-17 00:00:00 2023-07-17 00:00:00 Orders Only Doctor Unassigned, [place] [facility] 1.2840.114 350.1.13.10 4.2.7.2.686 [id number] [facility] 2023-07-17 00:00:00 2023-07-17 00:00:00 Telephone Derik [facility]ued[facility] [facility] [id number] 350.1.13.10 4.2.7.2.686 [id number] 134 [id number] [facility] 2020-01-08 00:00:00 2020-01-08 00:00:00 Telephone Saloni Ricardo [facility] [id number] 350.1.13.10 4.2.7.2.686 [id number] 134 [id number] [facility] 2020-01-02 14:52:26 2020-01-02 15:51:41 Office Visit Saloni Ricardo [facility] [id number] 350.1.13.10 4.2.7.2.686 [id number] 134 [id number] [facility] 2019-12-26 10:05:48 2019-12-26 10:46:43 Office Visit Nataly Rios [facility] [id number] 350.1.13.10 4.2.7.2.686 [id number] 134 [id number] [facility] 2019-12-26 00:00:00 2019-12-26 00:00:00 Orders Only Doctor Unassigned, [place] [facility] [id number] 350.1.13.10 4.2.7.2.686 [id number] [facility] 2019-12-11 01:09:00 2019-12-11 01:09:[address] [facility] [id number] [facility] 2019-12-10 15:15:00 2019-12-10 15:15:[address] [facility] [id number] [facility] Results Test Description Test Time Test Comments Results Resul t Comments Source XR Kub 2024-10-29 21:06:49 EXAM: XR KUB HISTORY: 24 years-old Female; Provided indication: Abdominal pain,constipatio n, not passing gas . TECHNIQUE: Frontal view of the abdomen and pelvis COMPARISON: CT abdomen and pelvis dated 10/24/2024 FINDINGS: No lines or tubes are present. A mild stool burden is noted with a non-obstructive bowel gas pattern. Noacute osseous abnormality is detected. Ilana Thompson MD., have reviewed this study and agree with theabove report. [facility]* Test Item Value Reference Range Interpretation Comme nts LIPASE (test code = 1827639093) 66 U/L 0-220 Lab Interpretation (test cod e = 94295-4) [facility] [id number] 22:33:05* Test Item Value Reference Range Interpretation Comme nts WBC (test code = 6690-2) 16.42 4.30-11.10 H RBC (test code = 789-8) 4.67 3.93-5.25 HGB (test code = 718-7) 14.0 g/dL 11.6-15.0 HCT (test code = 4544-3) 40.8 % 35.7-45.2 MCV (test code = 787-2) 87.4 fL 80.6-95.5 MCH (test code = 785-6) 30.0 pg 25.9-32.8 MCHC (test code = 786-4) 34.3 g/dL 31.6-35.1 RDW-SD (test code = 37025-9) 40.4 fL 39.0-49.9 RDW-CV (test code = 788-0) 12.7 % 12.0-15.5 PLT (test code = 777-3) 361 166-358 H MPV (test code = 83808-0) 10.3 fL 9.5-12.9 NRBC/100 WBC (test code = 6249330182) 0.0 0.0-10.0 NRBC x10^3 (test code = 3192273136) See_Comment [Automated message] The system which generated this result transmitted reference range: 10*3/?L. The reference range was not used to interpret this result as normal/abnormal. GRAN MAT (NEUT) % (test code = 770-8) 88.4 % IMM GRAN % (test code = 7726958248) 0.40 % LYMPH % (test code = 736-9) 7.7 % MONO % (test code = 5905-5) 3.2 % EOS % (test code = 713-8) 0.1 % BASO % (test code = 706-2) 0.2 % GRAN MAT x10^3(ANC) (test code = 5331443422) 14.51 10*3/uL 1.88-7.09 H IMM GRAN x10^3 (test code = 5419235246) 0.07 10*3/uL 0.00-0.06 H LYMPH x10^3 (test code = 731-0) 1.27 10*3/uL 1.32-3.29 L MONO x10^3 (test code = 742-7) 0.53 10*3/uL 0.33-0.92 EOS x10^3 (test code = 711-2) 0.03-0.39 L BASO x10^3 (test code = 704-7) 0.03 10*3/uL 0.01-0.07 Lab Interpretation (test code = 63568-8) [facility]normal [facility] w [id number] 13:52:55EXAM: CT ABDOMEN PELVIS W CONTRAST HISTORY: 24 years -old Female with Abdominal pain, acute, nonlocalized COMPARISON: CT abd pelv 07/27/2023 TECHNIQUE: Contiguous axial imaging from the level of the lung basesthrough the proximal thighs was performed after intravenous contrastadministration. Coronal and sagittal reconstructions were obtained. ? FINDINGS: LOWER THORAX: The lung bases are essentiallyclear. No cardiomegaly.. . LIVER: No focal hepatic lesions. Normal contour. GALLBLADDER AND BILIARYTREE: No intra or extrahepatic biliary ductaldilation. SPLEEN: Unremarkable. PANCREAS: No ductal dilatation or masses ADRENAL GLANDS: No adrenal lesions. KIDNEYS: No hydronephrosis, stones, or masses. Homogeneous and symmetricalenhancement. GI TRACT: No dilation or bowel wall thickening. Normal appendix. PERITONEUM AND RETROPERITONEUM: No free air or fluid collection. LYMPH NODES: Few mildly prominent mesenteric lymph nodes similar to prior. PELVIS/BLADDER: Bladder is distended with no wall thickening. VESSELS: Unremarkable. BONES AND SOFT TISSUES: No suspicious lytic or sclerotic bony lesions.Small foci of air in the right flank likely due to medication injection.[facility] with [id number] 12:38:04* Test Item Value Reference Range Interpretation Comme nts WBC (test code = 6690-2) 12.44 4.30-11.10 H RBC (test code = 789-8) 4.46 3.93-5.25 HGB (test code = 718-7) 13.4 g/dL 11.6-15.0 HCT (test code = 4544-3) 39.9 % 35.7-45.2 MCV (test code = 787-2) 89.5 fL 80.6-95.5 MCH (test code = 785-6) 30.0 pg 25.9-32.8 MCHC (test code = 786-4) 33.6 g/dL 31.6-35.1 RDW-SD (test code = 17856-2) 41.5 fL 39.0-49.9 RDW-CV (test code = 788-0) 12.8 % 12.0-15.5 PLT (test code = 777-3) 305 166-358 MPV (test code = 80656-8) 10.6 fL 9.5-12.9 NRBC/100 WBC (test code = 2022709765) 0.0 0.0-10.0 NRBC x10^3 (test code = 2487048373) See_Comment [Automated messa ge] The system which generated this result transmitted reference range: 10*3/?L. The reference range was not used to interpret this result as normal/abnormal. GRAN MAT (NEUT) % (test code = 770-8) 72.4 % IMM GRAN % (test code = 2896684382) 0.30 % LYMPH % (test code = 736-9) 21.0 % MONO % (test code = 5905-5) 5.9 % EOS % (test code = 713-8) 0.2 % BASO % (test code = 706-2) 0.2 % GRAN MAT x10^3(ANC) (test code = 9199902768) 9.01 10*3/uL 1.88-7.09 H IMM GRAN x10^3 (test code = 8026905917) 0.04 10*3/uL 0.00-0.06 LYMPH x10^3 (test code = 731-0) 2.61 10*3/uL 1.32-3.29 MONO x10^3 (test code = 742-7) 0.73 10*3/uL 0.33-0.92 EOS x10^3 (test code = 711-2) 0.03-0.39 L BASO x10^3 (test code = 704-7) 0.03 10*3/uL 0.01-0.07 Lab Interpretation (test code = 84533-3) Abnormal [facility] Metabolic [id number] 12:33:00* Test Item Value Reference Range Interpretation Comme nts NA (test code = 5871373609) 139 mmol/L 135-145 K (test code = 4658071693) 3.6 mmol/L 3.5-5.0 CL (test code = 4531300781) 105 mmol/L 98-108 CO2 TOTAL (test code = 7769531478) 28 mmol/L 23-31 AGAP (test code = 3121238189) 6 2-16 BUN (test code = 2681733084) 14 mg/dL 7-23 GLUCOSE (test code = 4916641442) 119 mg/dL 70-110 H CREATININE (test code = 2160-0) 0.59 mg/dL 0.50-1.04 TOTAL BILI (test code = 0264853930) 0.2 mg/dL 0.1-1.1 CALCIUM (test code = 4215983343) 9.0 mg/dL 8.6-10.6 T PROTEIN (test code = 6876478214) 7.5 g/dL 6.3-8.2 ALBUMIN (test code = 0840332041) 4.5 g/dL 3.5-5.0 ALK PHOS (test code = 5318628836) 64 U/L 34-122 ALTv (test code = 1742-6) 18 U/L 5-35 AST(SGOT) (test code = 4237918813) 20 U/L 13-40 eGFR (test code = 49339-7) 129.3 mL/min/1.73m2 CKD-EPI eGFR (2020). Assuming creatinine has been stable day-to-day for at least three months, the eGFR indicates Category G1 (>= 90 mL/min/1.73 m2) Lab Interpretation (test code = 12706-4) Abnormal [facility], [id number] 12:32:59* Test Item Value Reference Range Interpretation Comme [facility] LIPASE (test code = 7199824277) 42 U/L 0-220 Lab Interpretation (test cod e = 13647-2) Normal [facility] [id number] 11:47:00* Test Item Value Reference Range Interpretation Comme nts POCT PREG (test code = 1605) Negative On board controls acceptable with C Line (test code = 3574) Yes POCT PREG LOT # (test code = 3575) [id number] POCT PREG TEST DATE ( test code = 3576) 11/25/2025 Lab Interpretation (test cod e = 36718-0) [facility] [id number] 21:15:00* Test Item Value Reference Range Interpretation Comme nts POCT PREG (test code = 1605) Negative On board controls acceptable with C Line (test code = 3574) Yes POCT PREG LOT # (test code = 3575) POCT PREG TEST DATE ( test code = 3576) [facility] [id number] 21:15:00* Test Item Value Reference Range Interpretation Comme nts POCT PREG (test code = 1605) Negative On board controls acceptable with C Line (test code = 3574) Yes POCT PREG LOT # (test code = 3575) POCT PREG TEST DATE ( test code = 3576) [facility]
[2024-11-17] MEDS ORDERED: ONDANSETRON 4 MG/2 ML VIAL ONE ×2 (16:52→17:24)
[2024-11-17] MEDS ORDERED: NA CHLORIDE 0.9% 1,000 ML ONE (16:52)
[2024-11-17 17:01] LABS: Absolute Lymphocytes (CBC) 0.7 K/uL (0.7-4.9); Absolute Monocytes 0.8 K/uL (0.1-1.3); Absolute Neutrophil 8.6 K/uL (1.8-8.0); Basophils % 0.1 % (0-1.3); Hematocrit 39.3 % (36.0-45.0); Lymphocytes % 7.1 % (15.3-44.8); MCH 29.6 pg (27.0-35.0); MCV 89.6 fL (80-100); Monocytes % 8.2 % (3.3-12.3); Neutrophils % 84.6 % (41.7-73.7); Platelets 297 thou/uL (152-406); RBC Red Blood Cell Count 4.39 M/uL (3.86-4.86); Red Cell Distribution Width 13.9 % (12.1-15.2)
[2024-11-17 17:19] LABS: Albumin 3.7 g/dL (3.4-5.0); Albumin/Globulin Ratio 0.9 (1.1-1.8); Bilirubin Total 0.3 mg/dL (0.2-1.0); Globulin 4.3 g/dL (2.3-3.5)
[2024-11-17 17:21] LABS: SARS-CoV-2 Antigen CONTROL BLUE LINE VIS/BG OK; SARS-CoV-2 Antigen Rapid Res Negative (Negative)
[2024-11-17] MEDS ORDERED: POTASSIUM 25 MEQ EFFERV TAB ONE (17:24)
[2024-11-17] MEDS ORDERED: KETOROLAC 30 MG/ML INJ ONE (18:20)
[2024-11-17] MEDS ORDERED: DICYCLOMINE HCL 20 MG/2 ML AMP IM ONE (18:20)
[2024-11-17] MEDS ORDERED: METOCLOPRAMIDE 10 MG/2mL INJ ONE (18:20)
[2024-11-17 19:08] LABS: Specific Gravity 1.031 (1.005-1.030)
[2024-11-17 19:11] LABS: Specific Gravity > 1.030 (1.005-1.030); Sqamous Epithelial <5 /HPF (None Seen); Urine Bacteria <20 /HPF (<20); Urine Bilirubin NEGATIVE (Negative); Urine Blood 2+ (Negative); Urine Clarity Clear (Clear); Urine Color Light-Yellow (Yellow); Urine Culture Reflex Order NOT NEEDED; Urine Glucose NEGATIVE (Negative); Urine Ketones 2+ (Negative); Urine Microscopic Reflex YN ORDER UMIC; Urine Mucus 2+ /HPF (None Seen); Urine Nitrite NEGATIVE (Negative); Urine Protein 1+ (Negative); Urine Urobilinogen Normal (Normal); Urine WBC <5 /HPF (<5)
--- NOTE | 2024-11-17 19:41 | RAD REPORT ---
EXAMINATION: CT ABDOMEN AND PELVIS WITH CONTRAST CLINICAL INDICATION: Female, 24 years old.ABD PAIN TECHNIQUE: CT abdomen and pelvis was performed, after the administration of IV contrast, as per [facility] protocol. Axial, sagittal and coronal reconstructions were obtained. One or more of the following dose reduction techniques were used: Automated exposure control, adjustment of the mA and/o r kV according to patient size, and/or iterative reconstruction. Unless otherwise specified, incidental findings do not require dedicated imaging follow-up. [id number]. COMPARISON: No prior exam. FINDINGS: LOWER CHEST: Nodular airspace disease is present in the medial right lower lobe.No significant perica rdial effusion. UPPER GI: No significant abnormality. LIVER: Hepatic steatosis, but otherwise unremarkable. GALLBLADDER/BILE DUCTS: No biliary ductal dilatation.? PANCREAS: No mass, ductal dilation, or jenny-pancreatic fluid. SPLEEN: Unremarkable. ADRENALS: No adrenal masses. KIDNEYS AND URETERS: No hydronephrosis.No suspicious renal mass. ABDOMINAL AORTA AND OTHER VESSELS: Normal caliber aorta and IVC. PERITONEUM: No abnormal free fluid. No free air. LYMPH NODES: No pathologic lymphadenopathy. ABDOMINAL WALL: Unremarkable SMALL BOWEL/COLON: Small bowel has normal course and caliber. No colonic wall thickening or pericolon ic inflammatory changes.Normal appendix. URINARY BLADDER: Underdistended but grossly unremarkable. REPRODUCTIVE ORGANS: No pathologic process. MUSCULOSKELETAL: No acute or suspicious osseous abnormality. ADDITIONAL FINDINGS: None. IMPRESSION: No acute or significant abnormalities seen in the abdomen or pelvis. Nodular airspace disease in the medial right lower lobe which is most consistent with either pneumonia or pneumonitis secondary to aspiration.
--- NOTE | 2024-11-17 19:47 | ER ---
Nurse's Notes [facility] Name: Bert Reyes Age: 24 yrs Sex: Female : 2000 Arrival Date: 11/17/2024 Time: 15:50 Bed 11 Private MD: Diagnosis: Pneumonia Presentation: 11/17 16:21 Chief complaint: Patient states: n/v since 10/24, went to [place] ER x2. Also ss complaining of sore throat, runny nose, and upper abdominal pain. 16:22 Coronavirus screen: Client denies travel out of the [place] in the last 14 days. Ebola ss Screen: Patient negative for fever greater than or equal to 101.5 degrees Fahrenheit, and additional compatible Ebola Virus Disease symptoms Patient denies exposure to infectious person. Patient denies travel to an Ebola-affected area in the 21 days before illness onset. No symptoms or risks identified at this time. Initial Sepsis Screen: Does the patient meet any 2 criteria? HR > 90 bpm. Does the patient have a suspected source of infection? No. Patient's initial sepsis screen is negative. Risk Assessment: Do you want to hurt yourself or someone else? Patient reports no desire to harm self or others. Onset of symptoms was October 24, 2024. 16:22 Method Of Arrival: Ambulatory ss 16:22 Acuity: SYLVIA 3 ss Triage Assessment: 16:23 General: Appears in no apparent distress. Behavior is calm, cooperative. Pain: ss Complains of pain in abdomen Pain currently is 5 out of 10 on a pain scale. EENT: No signs and/or symptoms were reported regarding the EENT system. EENT: Reports nasal congestion nasal discharge. Neuro: Level of Consciousness is awake, alert, obeys commands, Oriented to person, place, time, situation. Cardiovascular: Patient's skin is warm and dry. Respiratory: Airway is patent Respiratory effort is even, unlabored, Respiratory pattern is regular, symmetrical. GI: Reports upper abdominal pain, nausea, vomiting. : No signs and/or symptoms were reported regarding the genitourinary system. Derm: No signs and/or symptoms reported regarding the dermatologic system. Musculoskeletal: No signs and/or symptoms reported regarding the musculoskeletal system. 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 - Infectious Disease History:: Denies. - Social history:: Smoking status: Patient denies any tobacco usage or history of. Screenin:08 [facility] ED Fall Risk Assessment (Adult) History of falling in the last 3 months, le1 including since admission No falls in past 3 months (0 pts) Confusion or Disorientation No (0 pts) Intoxicated or Sedated No (0 pts) Impaired Gait No (0 pts) Mobility Assist Device Used No (0 pt) Altered Elimination No (0 pt) Score/Fall Risk Level 0 - 2 = Low Risk Oriented to surroundings, Maintained a safe environment, Educated pt \T\ family on fall prevention, incl call for assistance when getting out of bed, Assessed \T\ reinforced patient's understanding of fall precautions, Hourly rounding (assess needs \T\ fall precautionary measures) done, Used ambulatory aids as needed (educated on \T\ assisted with). Abuse screen: Denies threats or abuse. Denies injuries from another. Nutritional screening: No deficits noted. Tuberculosis screening: No symptoms or risk factors identified. Assessment: 17:07 General: Appears in no apparent distress. Behavior is calm, cooperative. Pain: le1 Complains of pain in abdomen Pain currently is 5 out of 10 on a pain scale. Quality of pain is described as crampy. Neuro: No deficits noted. Cardiovascular: No deficits noted. Respiratory: No deficits noted. GI: Reports upper abdominal pain, cramping, nausea, Pain is 5 out of 10 on a pain scale. vomiting. : No deficits noted. Musculoskeletal: No deficits noted. Vital Signs: 16:22 BP 130 / 89; Pulse 110; Resp 18; Temp 99.5(O); Pulse Ox 94% on R/A; MAP 103 mmHg; ss Weight 113.4 kg; Height 5 ft. 2 in. ; Pain 5/10; 19:44 Pulse 88; Pulse Ox 97% ; ec2 20:20 BP 138 / 72; Pulse 94; Resp 16; Temp 98.7(O); Pulse Ox 100% on R/A; Pain 0/10; le1 16:22 Body Mass Index 45.73 (113.40 kg, 157.48 cm) 16:22 Pain Scale: Adult ss 20:20 Pain Scale: Adult le1 ED Course: 15:52 Patient arrived in ED. im 16:05 Vane Michel [facility]-C [facility] sb4 16:05 Harsh Hilton MD is Attending Physician. sb4 16:17 María Carbajal, RN is Primary Nurse. le1 16:23 Triage completed. ss 16:23 Arm band placed on right wrist. ss 17:09 Patient has correct armband on for positive identification. Bed in low position. Call le1 light in reach. Side rails up X2. Provided Education on: Informed patient to use call light if needing assistance.. 17:09 COVID swab sent to lab. Flu and/or RSV swab sent to lab. Inserted saline lock: 20 gauge le1 in left antecubital area, using aseptic technique. Blood collected. Flushed with 10 mL NS. 17:30 Radiology exam delayed due to test not completed at this time. mw3 18:37 Radiology exam delayed due to test not completed at this time. mw3 19:04 Attending Physician role handed off by Harsh Hilton MD ec2 19:04 Kei Campos MD is Attending Physician. ec2 19:31 CT Abd/Pelvis - IV Contrast Only In Process Unspecified. EDMS 20:20 No provider procedures requiring assistance completed. IV discontinued, intact, le1 bleeding controlled, No redness/swelling at site. Pressure dressing applied. Administered Medications: 17:05 Drug: NS 0.9% IV 1000 ml IV at 1 bolus Per protocol; to be given as a bolus over 60 le1 minutes Route: IV; Rate: 1 bolus; Site: right antecubital; 20:21 Follow up: Response: No adverse reaction; IV Status: Completed infusion le1 17:25 Drug: Ondansetron IVP 4 mg IVP once; over 2 minutes Route: IVP; Site: left antecubital; le1 18:22 Follow up: Response: No change in condition le1 17:25 Drug: Potassium PO Effervescent Tablet 50 mEq PO once; dissolve in 4 ounces of water or le1 juice Route: PO; 18:23 Follow up: Response: No adverse reaction le1 20:10 Follow up: Response: No adverse reaction le1 18:52 Drug: metoCLOPramide IVP 10 mg IVP once; over 1 to 2 minutes Route: IVP; Site: left le1 antecubital; 20:10 Follow up: Response: Marked relief of symptoms le1 18:52 Drug: Ketorolac IVP 15 mg IVP once Route: IVP; Site: left antecubital; le1 20:10 Follow up: Response: Marked relief of symptoms le1 18:52 Drug: Dicyclomine IM 20 mg IM once Route: IM; Site: right gluteus; le1 20:09 Follow up: Response: Marked relief of symptoms le1 20:09 Drug: Amoxicillin-Clavulanate PO 875 mg PO once Route: PO; le1 20:10 Follow up: Response: Medication administered at discharge. le1 Medication: 20:20 VIS not applicable for this client. le1 Outcome: 19:47 Discharge ordered by . ec2 20:20 Discharged to home ambulatory, le1 20:20 Condition: improved 20:20 Discharge instructions given to patient, family, Instructed on discharge instructions, follow up and referral plans. medication usage, Demonstrated understanding of instructions, follow-up care, medications, Prescriptions given X 1, 20:21 Patient left the ED. le1 Signatures: Dispatcher [employer] Yvrose Mills, IRMA RN Sandra Palmer mw3 Vane Michel PA-C PAPiter sb4 Justine López Edwin, MD MD ec2 María Carbajal RN RN le1
--- NOTE | 2024-11-17 19:47 | EDPHYS ---
Physician Documentation [facility] Name: Bert Reyes Age: 24 yrs Sex: Female : 2000 Arrival Date: 11/17/2024 Time: 15:50 Bed 11 Private MD: ED Physician Kei Campos HPI: 11/17 18:06 This 24 yrs old Female presents to ER via Ambulatory with complaints of sb4 Vomiting, Chills. 18:07 Patient reports intermittent episodes of nausea, vomiting, abdominal pain for 3 weeks sb4 now. States that she has been seen at [facility] twice for this within the past 3 weeks, has had blood work and CT scans and has not been given a diagnosis. She states that her vomiting and pain has continued. States that she cannot hold anything down. Additionally, she states that over the past few days, she has been experiencing sore throat, post nasal drip, chills, fever. 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 - Infectious Disease History:: Denies. - Social history:: Smoking status: Patient denies any tobacco usage or history of. ROS: 18:08 Respiratory: Negative for shortness of breath, cough, wheezing, and pleuritic chest sb4 pain, 18:08 Constitutional: Positive for chills, fever, 18:08 ENT: Positive for nasal discharge, sore throat, 18:08 Abdomen/GI: Positive for abdominal pain, nausea and vomiting, 18:08 All other systems are negative, Exam: 18:08 Head/Face: Normocephalic, atraumatic. Eyes: Extra-ocular motions intact. Periorbital sb4 areas with no swelling, redness, or edema. ENT: Mucous membranes moist. Cardiovascular: Regular rate and rhythm with a normal S1 and S2. Respiratory: No increased work of breathing, no retractions or nasal flaring. Abdomen/GI: Soft, non-tender, no distension. Skin: Warm, dry with normal turgor. Normal color with no rashes, no lesions, and no evidence of cellulitis. 18:08 Constitutional: The patient appears in no acute distress, alert, awake, obese, Vital Signs: 16:22 BP 130 / 89; Pulse 110; Resp 18; Temp 99.5(O); Pulse Ox 94% on R/A; MAP 103 mmHg; ss Weight 113.4 kg; Height 5 ft. 2 in. ; Pain 5/10; 19:44 Pulse 88; Pulse Ox 97% ; ec2 20:20 BP 138 / 72; Pulse 94; Resp 16; Temp 98.7(O); Pulse Ox 100% on R/A; Pain 0/10; le1 16:22 Body Mass Index 45.73 (113.40 kg, 157.48 cm) ss 16:22 Pain Scale: Adult ss 20:20 Pain Scale: Adult le1 MDM: 16:15 Medical Screening Exam initiated sb4 19:05 ED course: Patient signed out to me with pending urine and CT imaging. In brief patient ec2 arrives today for evaluation of nausea and vomiting.. 19:06 ED course: CBC reassuring, metabolic profile shows slight hypokalemia with potassium of ec2 3.0, lipase within normal ranges. Flu and COVID testing negative. Plan to follow-up urine studies and CT abdomen pelvis.. 19:06 Data reviewed: vital signs, nurses notes. ec2 19:44 ED course: On reassessment patient is with improving vital signs. Questionable ec2 pneumonia versus pneumonitis. Will add on antibiotics and have the patient follow-up PCP. Return precautions given.. 11/17 16:31 Order name: CBC with Diff; Complete Time: 17:05 sb4 11/17 16:31 Order name: CMP; Complete Time: 17:21 sb4 11/17 16:31 Order name: Lipase; Complete Time: 17:21 sb4 11/17 16:31 Order name: Test, Urine; Complete Time: 19:42 sb4 11/17 16:31 Order name: Urinalysis w/ reflexes; Complete Time: 19:42 sb4 11/17 16:31 Order name: SARS RAPID; Complete Time: 17:21 sb4 11/17 16:31 Order name: Flu; Complete Time: 17:22 sb4 11/17 16:31 Order name: CT Abd/Pelvis - IV Contrast Only; Complete Time: 19:42 sb4 11/17 16:31 Order name: IV Saline Lock; Complete Time: 17:06 sb4 11/17 16:31 Order name: Labs collected and sent; Complete Time: 17:06 sb4 Administered Medications: 17:05 Drug: NS 0.9% IV 1000 ml IV at 1 bolus Per protocol; to be given as a bolus over 60 le1 minutes Route: IV; Rate: 1 bolus; Site: right antecubital; 20:21 Follow up: Response: No adverse reaction; IV Status: Completed infusion le1 17:25 Drug: Ondansetron IVP 4 mg IVP once; over 2 minutes Route: IVP; Site: left antecubital; le1 18:22 Follow up: Response: No change in condition le1 17:25 Drug: Potassium PO Effervescent Tablet 50 mEq PO once; dissolve in 4 ounces of water or le1 juice Route: PO; 18:23 Follow up: Response: No adverse reaction le1 20:10 Follow up: Response: No adverse reaction le1 18:52 Drug: metoCLOPramide IVP 10 mg IVP once; over 1 to 2 minutes Route: IVP; Site: left le1 antecubital; 20:10 Follow up: Response: Marked relief of symptoms le1 18:52 Drug: Ketorolac IVP 15 mg IVP once Route: IVP; Site: left antecubital; le1 20:10 Follow up: Response: Marked relief of symptoms le1 18:52 Drug: Dicyclomine IM 20 mg IM once Route: IM; Site: right gluteus; le1 20:09 Follow up: Response: Marked relief of symptoms le1 20:09 Drug: Amoxicillin-Clavulanate PO 875 mg PO once Route: PO; le1 20:10 Follow up: Response: Medication administered at discharge. le1 Disposition: 19:06 I reviewed the patient's care provided by Advanced Practice Provider \T\ agree w/ the ec2 diagnosis \T\ care plan. I personally saw the pt \T\ performed a substantive portion of the visit, incldng all aspects of the (History/Exam/Medical Decision Making). Disposition Summary: 11/17/24 19:47 Discharge Ordered Notes: Location: Home ec2 Condition: Stable ec2 Diagnosis - Pneumonia ec2 Followup: ec2 - With: Private Physician - When: - Reason: Recheck today's complaints Discharge Instructions: - Discharge Summary Sheet ec2 - Community-Acquired Pneumonia, Adult, [id number] ec2 Forms: - Work release form lg3 - Medication Reconciliation Form ec2 - Antibiotic Education ec2 - Prescription Opioid Use ec2 - Patient Portal Instructions ec2 - Leadership Thank You Letter ec2 Prescriptions: - Augmentin 875-125 mg Oral tablet - take 1 tablet ORAL route every 12 hours for 7 days; 14 tablet; Refills: 0, ec2 Product Selection Permitted - Zofran 4 mg Oral Tablet - take 1 tablet ORAL route every 12 hours As needed; 20 tablet; Refills: 0, ec2 Product Selection Permitted Signatures: Dispatcher [employer] EDYvrose Singh RN RN ss Vane Michel PA-C PA-C sb4 Kei Campos MD MD ec2 María Carbajal RN RN le1 Corrections: (The following items were deleted from the chart) 18:09 18:07 Patient reports intermittent episodes of nausea, vomiting, abdominal pain for 3 sb4 weeks now. States that she has been seen at [facility] twice for this within the past 3 weeks, has had blood work and CT scans and has not been given a diagnosis. She states that her vomiting and pain has continued. States that she cannot hold anything down. Additionally, she states that over the past few days, she has been experiencing sore throat,. sb4
[2024-11-17] MEDS ORDERED: AMOX/K CLAV 875 MG TAB ONE (19:57)
[2024-11-17 20:58] VITALS: BP 138/72; TEMP 98.7
[2024-11-17 20:59] VITALS: O2SAT 97
== END 2024-11-17 20:21 | disposition home or self-care (01) ==
LOC: ER 15:50
DX: J18.9 Pneumonia, unspecified organism (principal); Z11.52 Encounter for screening for COVID-19
CPT/HCPCS: 96361; 85025; 81001; 36415; 81025; 83690; 80053; 87804 ×2; 74177; 96375; 96372; 96374; 99284; 87811; Q9967; J2765; J0500; J2405; J7030

== ENCOUNTER 2024-11-21 18:32 | Emergency (ER) | payer OTHER ==
--- OUTSIDE RECORDS SUMMARY | 2024-11-21 18:35 | XMS REPORT | Continuity of Care Document ---
Author Name Unknown Address [address] [facility] [address]. [address] [place] [address] [facility] [address] [facility]. [address] [place] [address] Care Team Providers Care Cardiovascular Specialist Name Role Phone Andrzej Frazier MD Primary Care Physician + [phone] Elizabeth Chicas Attending Clinician Unavailable JAYLYN EDDY Attending Clinician Unavailable Shabana Naranjo NP Attending Clinician [phone] ANDRZEJ FRAZIER Attending Clinician Unavailab ANDRZEJ Briceno Attending Clinician Unavailab SHABANA Walker Attending Clinician Unavailable SHABANA NARANJO Attending Clinician Unavailable 2, [facility] Attending Clinician Unavailable KRISTI PATEL Attending Clinician Unavailab Kristi Hernandez NP Attending Clinician [phone] KAREN RUBIO Attending Clinician Unavailable KAREN RUBIO Attending Clinician Unavailable Karen Rubio MD Attending Clinician [phone] DERIK RUEDA Attending Clinician Unavaila DERIK Sosa Attending Clinician Unavaila ara Doctor Unassigned, [place] Attending Clinician U navailable DL LOWE Attending Clinician Unavailable Dl Lowe MD Attending Clinician [phone] 2, [facility] Attending Clinician Unavailable Saloni Ricardo MD Attending Clinician [phone] Nataly Rios PA-C Attending Clinician [phone] KAREN RUBIO Admitting Clinician Unavailable DERIK RUEDA Admitting Clinician UnavailDL [place] Admitting Clinician Unavailable Payers Payer Name Policy Type Policy Number Effective Date Expirati on Date Source DRE [id number] 2024 00:00:00 [facility] [id number] 2019 00:00:00 [facility] [id number] 2019 00:00:00 07-20 00:00:00 Problems Condition Name Condition Details Condition Category Status Onset Date Resolution Date Last Treatment Date Treating Clinician Comments Source Hypokalemi a Hypokalemi a Disease Active 2023-11 00:00: 00 [facility] Nausea and vomiting, unspecifie d vomiting type Nausea and vomiting, unspecifie d vomiting type Disease Active 2023-11 00:00: 00 [facility] Cannabis hyperemesi s syndrome concurrent with and due to cannabis dependence Cannabis hyperemesi s syndrome concurrent with and due to cannabis dependence Disease Active 2023-11 00:00: 00 [facility] Morbid obesity with body mass index of 40.0-49.9 Morbid obesity with body mass index of 40.0-49.9 Disease Active 01-02 00:00: 00 [facility] Acne vulgaris Acne vulgaris Disease Active 07-04 00:00: 00 [facility] Atopic dermatitis and related condition Atopic dermatitis and related condition Disease Active 07-04 00:00: 00 Overview: Formattin g of this note might be different from the original. 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 Utility [facility] Allergic rhinitis, unspecifie d seasonalit y, unspecifie d trigger Allergic rhinitis, unspecifie d seasonalit y, unspecifie d trigger Problem Active [facility] Family planning counseling Family planning counseling Problem Active [facility] Low back pain Low back pain Problem Active [facility] Other chronic pain Other chronic pain Problem Active [facility] Morbid obesity with body mass index of 40.0-49.9 Morbid obesity with body mass index of 40.0-49.9 Disease Resolve d 2-13 00:00: 00 2023-08-09 00:00:00 2023-08-09 12:57:41 [facility] Presence of of 52 mg levonorges trel-relea sing intrauteri ne device (IUD) Presence of of 52 mg levonorges trel-relea sing intrauteri ne device (IUD) Disease Resolve d 2-13 00:00: 00 2023-08-09 00:00:00 2023-08-09 12:57:31 [facility] Allergies, Adverse Reactions, Alerts Allergy Name Allergy Type Status Severity Reaction(s) Onset Date Inactive Date Treating Clinician Comments Source [place] (Diagnos tic) Adverse Reaction Active Info Not Available [facility] NO KNOWN ALLERGIE S Drug Class Active [facility] Social History Social Habit Start Date Stop Date Quantity Comments Source History SDOH Alcohol Std Drinks [facility] History SDOH Alcohol Binge [facility] Gender identity [facility] Sexual orientation [facility] Alcoholic beverage intake 2024-10-29 00:00:00 2024-10-29 00:00:00 Current drinker of alcohol (finding) [facility] Alcohol intake 2023-08-09 00:00:00 2023-08-09 00:00:00 Current drinker of alcohol (finding) [facility] Tobacco Comment 2023-07-17 00:00:00 2023-07-17 00:00:00 No smoker in household [facility] Tobacco use and exposure 2023-07-17 00:00:00 2023-07-17 00:00:00 Smokeless tobacco non-user [facility] History of Social function 2023-07-17 00:00:00 2023-07-17 00:00:00 [facility] History SDOH Alcohol Frequency 2019-12-26 00:00:00 2019-12-26 00:00:00 1 [facility] Sex assigned at 2000 00:00:00 2000 00:00:00 [facility] Smoking Status Start Date Stop Date Source Never smoked tobacco [facility] Medications Ordered Medication Name Filled Medication Name Start Date Stop Date Current Medication? Ordering Clinician Indication Dosage Frequency Signature (SIG) Comments Components Source polyethylen e glycol 3350 (MIRALAX) 17 gram/dose powder 2023-11 00:00: 00 11-15 05:59 :00 Yes [id number] 17g Take 17 g by mouth in the morning and 17 g in the evening. Do all this for 15 days. [facility] ondansetron 4 mg disintegrat ing tablet 2023-11 00:00: 00 Yes [id number] 4mg Take 1 tablet by mouth every 8 (eight) hours as needed for Nausea and Vomiting (N/V). [facility] NaCl 0.9% (NS) bolus infusion 1,000 mL 2023-11 23:00: 00 10-25 00:42 :00 No 1000mL at 999 mL/hr, 1,000 mL, IV Infusion, ONCE, 1 dose, On Renee 10/24/24 at 1700, GRADY [facility] KCL (KLOR-CON M20) tablet 40 mEq 2023-11 23:00: 00 10-24 22:57 :00 No 40meq 40 mEq, Oral, ONCE, 1 dose, On Renee 10/24/24 at 1700, GRADY [facility] proMETHazin e (PHENERGAN) 25 mg in NS 50 mL IV piggyback (CNR) 2023-11 22:30: 00 10-24 23:17 :00 No 25mg 25 mg, IV Piggyback, at 200 mL/hr Administer over 15 Minutes, ONCE, 1 dose, On Renee 10/24/24 at 1630, GRADY [facility] iopamidol (ISOVUE 370-500 mL) injection 90 mL 2023-11 13:45: 00 10-24 13:45 :00 No [id number] 90mL 90 mL, Intravenou s, ONCE, 1 dose, On Renee 10/24/24 at 0745, Routine [facility] metoclopram leena HCl (REGLAN) injection 10 mg 2023-11 13:30: 00 10-24 13:32 :00 No 10mg 10 mg, Slow IV Push, ONCE, 1 dose, On Renee 10/24/24 at 0730, GRADY [facility] ketorolac (TORADOL) injection 30 mg 2023-11 13:00: 00 10-24 12:03 :00 No 30mg 30 mg, Slow IV Push, ONCE, 1 dose, On Renee 10/24/24 at 0700, Routine [facility] dicyclomine (BENTYL) injection 20 mg 2023-11 12:45: 00 10-24 12:04 :00 No 20mg 20 mg, Intramuscu lar, ONCE NOW, 1 dose, On Renee 10/24/24 at 0645, Routine [facility] ondansetron (ZOFRAN (PF)) injection 4 mg 2023-11 12:00: 00 10-24 12:07 :00 No 4mg 4 mg, Slow IV Push, ONCE, 1 dose, On Renee 10/24/24 at 0600, Administer over 2-5 Minutes, 2 mL [facility] dicyclomine 20 mg tablet 2023-11 00:00: 00 Yes [id number] 20mg Take 1 tablet by mouth 4 (four) times daily. [facility] metoclopram leena HCl 10 mg tablet 2023-11 00:00: 00 Yes [id number] 10mg Take 1 tablet by mouth every 6 (six) hours. [facility] famotidine 20 mg tablet 2023-11 00:00: 00 Yes [id number] 20mg Take 1 tablet by mouth in the morning and 1 tablet in the evening. [facility] iopamidol (ISOVUE 370-500 mL) injection 82 mL 07-27 18:30: 00 07-27 18:30 :00 No [id number] 82mL 82 mL, Intravenou s, ONCE, 1 dose, On Renee 07/27/23 at 1330, Routine [facility] maalox:diph enhydrAMINE :lidocaine 2 % viscous 1:1:1 ([facility]) oral suspension 15 mL 07-27 16:45: 00 07-27 17:15 :00 No 15mL 15 mL, Oral, ONCE, 1 dose, On Renee 07/27/23 at 1145, Routine [facility] FENTanyl PF (SUBLIMAZE (PF)) injection 50 mcg 07-27 16:45: 00 07-27 17:14 :00 No 50ug 50 mcg, Slow IV Push, ONCE, 1 dose, On Renee 07/27/23 at 1145, STAT [facility] ondansetron (ZOFRAN (PF)) injection 4 mg 07-27 16:45: 00 07-27 17:14 :00 No 4mg 4 mg, Slow IV Push, ONCE, 1 dose, On Renee 07/27/23 at 1145, GRADY [facility] NaCl 0.9% (NS) bolus infusion 1,000 mL 07-27 16:00: 00 07-27 18:27 :00 No 1000mL at 999 mL/hr, 1,000 mL, IV Infusion, ONCE, 1 dose, On Renee 07/27/23 at 1100, [facility] dicyclomine 20 mg tablet 07-27 00:00: 00 10-24 00:00 :00 No [id number] 20mg Take 1 tablet by mouth in the morning and 1 tablet at noon and 1 tablet in the evening. [facility] levonorgest rel (MIRENA) IUD 1 Device -14 00:15: 00 01-02 23:12 :00 No 1{devic e} [facility] levonorgest rel (MIRENA) 20 mcg/24 hours (5 yrs) 52 mg IUD 01-02 00:00: 00 01-02 00:00 :00 No [id number] 1{devic e} 1 Device by Intrauteri ne route once now for 1 dose. [facility] miSOPROStol 200 mcg tablet 12-26 00:00: 00 01-02 00:00 :00 No [id number] Take one tablet night before procedure, then take one tablet morning of procedure [facility] Meloxicam Meloxicam 12-10 00:00: 00 01-09 00:00 :00 No Elizabeth Millender 1 tablet as needed for pain; take with food or milk [facility] fluocinonid e (LIDEX) 0.05 % ointment 07-04 00:00: 00 07-17 00:00 :00 No [id number] Apply to area(s) 2 (two) times daily. [facility] tretinoin microsphere s (RETIN-A MICRO PUMP) 0.04 % gel 07-04 00:00: 00 07-17 00:00 :00 No [id number] Apply to affected area(s) at bedtime. [facility] clindamycin -benzoyl peroxide (BENZACLIN) gel 07-04 00:00: 00 07-17 00:00 :00 No [id number] Apply to area(s) every morning. [facility] doxycycline (VIBRA-TABS ) 100 mg tablet 01-31 00:00: 00 07-17 00:00 :00 No 100mg Take 1 Tab by mouth 2 (two) times daily. [facility] clindamycin -benzoyl peroxide (BENZACLIN PUMP) gel 01-31 00:00: 00 07-17 00:00 :00 No Apply to affected area(s) every morning. [facility] fluticasone (CUTIVATE) 0.05 % cream 2012-0 3-14 00:00: 00 07-17 00:00 :00 No Apply BID to eczema prn itchy [facility] Vital Signs Vital Name Observation Time Observation Value Comments S macey Systolic blood pressure 2024-10-29 19:03:00 126 mm[Hg] [facility] Diastolic blood pressure 2024-10-29 19:03:00 89 mm[Hg] [facility] Heart rate 2024-10-29 19:01:00 98 /min Unive [facility] Body temperature 2024-10-29 19:01:00 37.06 Cori [facility] Respiratory rate 2024-10-29 19:01:00 18 /min [facility] Body height 2024-10-29 19:01:00 157.5 cm [facility] Body weight 2024-10-29 19:01:00 112.311 kg [facility] BMI 2024-10-29 19:01:00 45.29 kg/m2 [facility] Oxygen saturation in Arterial blood by Pulse oximetry 2024-10-29 19:01:00 97 /min [facility] Systolic blood pressure 2024-10-25 00:00:00 99 mm[Hg] [facility] Diastolic blood pressure 2024-10-25 00:00:00 79 mm[Hg] [facility] Heart rate 2024-10-25 00:00:00 83 /min Unive [facility] Body temperature 2024-10-25 00:00:00 36.83 Cori [facility] Respiratory rate 2024-10-25 00:00:00 18 /min [facility] Oxygen saturation in Arterial blood by Pulse oximetry 2024-10-25 00:00:00 100 /min [facility] Body height 2024-10-24 21:52:00 157.5 cm [facility] Body weight 2024-10-24 21:52:00 113.399 kg [facility] BMI 2024-10-24 21:52:00 45.73 kg/m2 [facility] Systolic blood pressure 2024-10-24 13:56:00 153 mm[Hg] [facility] Diastolic blood pressure 2024-10-24 13:56:00 107 mm[Hg] [facility] Heart rate 2024-10-24 13:56:00 75 /min Unive [facility] Body temperature 2024-10-24 13:56:00 36.61 Cori [facility] Respiratory rate 2024-10-24 13:56:00 16 /min [facility] Oxygen saturation in Arterial blood by Pulse oximetry 2024-10-24 13:56:00 96 /min [facility] Body height 2024-10-24 11:33:00 157.5 cm [facility] Body weight 2024-10-24 11:33:00 113.399 kg [facility] BMI 2024-10-24 11:33:00 45.73 kg/m2 [facility] Systolic blood pressure 2023-08-09 16:03:00 128 mm[Hg] [facility] Diastolic blood pressure 2023-08-09 16:03:00 82 mm[Hg] [facility] Heart rate 2023-08-09 16:03:00 62 /min [facility] Respiratory rate 2023-08-09 16:03:00 18 /min [facility] Body height 2023-08-09 16:03:00 157.5 cm [facility] Body weight 2023-08-09 16:03:00 90.719 kg [facility] BMI 2023-08-09 16:03:00 36.58 kg/m2 [facility] Systolic blood pressure 2023-07-27 17:00:00 134 mm[Hg] [facility] Diastolic blood pressure 2023-07-27 17:00:00 76 mm[Hg] [facility] Heart rate 2023-07-27 17:00:00 54 /min [facility] Respiratory rate 2023-07-27 17:00:00 14 /min [facility] Oxygen saturation in Arterial blood by Pulse oximetry 2023-07-27 17:00:00 98 /min [facility] Body temperature 2023-07-27 14:57:00 36.61 Cori [facility] Body weight 2023-07-27 14:57:00 88.451 kg [facility] BMI 2023-07-27 14:57:00 35.67 kg/m2 [facility] Systolic blood pressure 2023-07-26 14:01:00 128 mm[Hg] [facility] Diastolic blood pressure 2023-07-26 14:01:00 90 mm[Hg] [facility] Heart rate 2023-07-26 14:01:00 72 /min Unive [facility] Body temperature 2023-07-26 14:01:00 36.39 Cori [facility] Body height 2023-07-26 14:01:00 157.5 cm [facility] Body weight 2023-07-26 14:01:00 88.905 kg [facility] BMI 2023-07-26 14:01:00 35.85 kg/m2 [facility] Oxygen saturation in Arterial blood by Pulse oximetry 2023-07-26 14:01:00 98 /min [facility] Systolic blood pressure 2023-07-17 18:23:00 124 mm[Hg] [facility] Diastolic blood pressure 2023-07-17 18:23:00 79 mm[Hg] [facility] Heart rate 2023-07-17 18:23:00 61 /min Unive [facility] Body temperature 2023-07-17 18:23:00 36.5 Cori [facility] Body height 2023-07-17 18:23:00 157.5 cm [facility] Body weight 2023-07-17 18:23:00 89.676 kg [facility] BMI 2023-07-17 18:23:00 36.16 kg/m2 [facility] Oxygen saturation in Arterial blood by Pulse oximetry 2023-07-17 18:23:00 98 /min [facility] Systolic blood pressure 2020-01-02 21:18:00 126 mm[Hg] [facility] Diastolic blood pressure 2020-01-02 21:18:00 88 mm[Hg] [facility] Heart rate 2020-01-02 21:18:00 84 /min Unive [facility] Body temperature 2020-01-02 21:18:00 36.78 Cori [facility] Respiratory rate 2020-01-02 21:18:00 18 /min [facility] Body height 2020-01-02 21:18:00 158.8 cm [facility] Body weight 2020-01-02 21:18:00 117.935 kg [facility] BMI 2020-01-02 21:18:00 46.80 kg/m2 [facility] Systolic blood pressure 2019-12-26 16:20:00 123 mm[Hg] [facility] Diastolic blood pressure 2019-12-26 16:20:00 88 mm[Hg] [facility] Heart rate 2019-12-26 16:20:00 85 [facility] Body temperature 2019-12-26 16:20:00 36.83 Cori [facility] Respiratory rate 2019-12-26 16:20:00 18 /min [facility] Body height 2019-12-26 16:20:00 157.5 cm [facility] Body weight 2019-12-26 16:20:00 117.754 kg [facility] BMI 2019-12-26 16:20:00 47.48 kg/m2 [facility] Procedures Procedure Date / Time Performed Performing Clinician Source XR KUB 2024-10-29 20:43:00 Shabana Naranjo [facility] CBC WITH DIFF 2024-10-29 20:14:[address] [facility] URINE DRUG (IMMUNOASSAY) - COMPREHENSIVE DRUG SCREEN W/O REFLEX 2024-10-24 22:45:00 Kristi Patel [facility] LIPASE 2024-10-24 22:16:00 [facility]. METABOLIC PANEL ([id number]) 2024-10-24 22:16:00 Kristi Patel [facility] CBC WITH DIFF 2024-10-24 22:16:00 Kristi Patel [facility] CT ABDOMEN PELVIS W CONTRAST 2024-10-24 12:53:09 Karen Rubio [facility] LIPASE 2024-10-24 11:48:00 Karen Rubio [facility] COMP. METABOLIC PANEL ([id number]) 2024-10-24 11:48:00 Karen Rubio [facility] CBC WITH DIFF 2024-10-24 11:48:00 Karen Rubio [facility] URINALYSIS 2024-10-24 11:48:00 Karen Rubio [facility] POCT TEST 2024-10-24 11:47:00 Karen Rubio [facility] US PELVIS COMPLETE WITH TRANSVAGINAL 2023-08-17 16:21:57 Derik Rueda [facility] PATIENT QUESTIONNAIRE 2023-08-11 05:01:00 Doctor Unassigned, [place] [facility] CT ABDOMEN PELVIS W CONTRAST 2023-07-27 17:30:58 Dl Lowe [facility] URINALYSIS 2023-07-27 15:53:00 Dl Lowe [facility] COMP. METABOLIC PANEL ([id number]) 2023-07-27 15:51:00 Dl Lowe [facility] CBC WITH DIFF 2023-07-27 15:51:00 Dl Lowe [facility] NOTICE OF PRIVACY PRACTICES 2023-07-27 14:29:35 Doctor Unassigned, [place] [facility] CONSENT/REFUSAL FOR DIAGNOSIS AND TREATMENT 2023-07-27 14:26:24 Doctor Unassigned, [place] [facility] ASSIGNMENT OF BENEFITS 2023-07-17 18:15:31 Docto r Unassigned, [place] [facility] POCT TEST 2020-01-02 00:00:00 Saloni Ricardo [facility] ASSIGNMENT OF BENEFITS 2019-12-26 16:02:59 Docto r Unassigned, [place] [facility] Encounters Start Date/Time End Date/Time Encounter Type Admission Type Attending Clinicians Care Facility Care Department Encounter ID Source 2021-12-15 11:02:13 Outpatient Elizabeth Chicas [facility] [id number] [facility] 2024-11-04 11:00:00 2024-11-04 11:00:00 Outpatient JAYLYN CHRISTIANSON [facility] [id number] [facility] 2024-10-30 00:00:00 2024-10-30 19:51:24 Telephone Shabana Naranjo [facility] 1..840.114 350.1.13.10 4.2.7.2.686 [id number] [facility] 2024-10-30 11:20:00 2024-10-30 11:20:00 Outpatient R OBI-BISHNU , ANDRZEJ OBI-BISHNU , ANDRZEJ [facility] [id number] [facility] 2024-10-29 14:26:27 2024-10-29 23:59:00 Hospital Encounter Shabana Naranjo [facility] 1..840.114 350.1.13.10 4.2.7.2.686 [id number] [facility] 2024-10-29 14:26:26 2024-10-29 23:59:00 Outpatient R SHABANA NARANJO JEENA [facility] [id number] [facility] 2024-10-29 14:15:00 2024-10-29 14:30:00 Wait Staff Visit 2, [facility] Shabana Naranjo 2, Adc Lab [facility] [id number] 350.1.13.10 4.2.7.2.686 [id number] [facility] 2024-10-29 13:00:00 2024-10-29 14:03:40 [facility] 1..840.114 350.1.13.10 4.2.7.2.686 [id number] [facility] 2024-10-24 15:56:00 2024-10-24 18:44:00 Emergency X KRISTI PATEL [facility] [id number] [facility] 2024-10-24 15:56:00 2024-10-24 18:44:00 Emergency AdeKristi ríos [facility] 1..840.114 350.1.13.10 4.2.7.2.686 [id number] [facility] 2024-10-24 05:36:00 2024-10-24 07:58:00 Emergency X KAREN RUBIO WAKILI [facility] [id number] [facility] 2024-10-24 05:36:00 2024-10-24 07:58:00 Emergency Karen Rubio [facility] 1..840.114 350.1.13.10 4.2.7.2.686 [id number] [facility] 2023-08-17 10:16:21 2023-08-17 23:59:00 Outpatient R DERIK RUEDA CHERYAL [facility] [id number] [facility] 2023-08-17 10:16:21 2023-08-17 23:59:00 Hospital Encounter Derik Rueda [facility] 1..840.114 350.1.13.10 4.2.7.2.686 [id number] [facility] 2023-08-14 14:30:00 2023-08-14 14:30:00 [facility] [id number] 2023-08-11 00:00:00 2023-08-11 00:00:00 Orders Only Doctor Unassigned, [place] [facility] 1..114 350.1.13.10 4.2.7.2.686 [id number] [facility] 2023-08-09 10:30:00 2023-08-09 11:12:05 Outpatient [facility] [id number] [facility] 2023-08-09 10:30:00 2023-08-09 11:12:05 Office Visit Derik Rueda [facility] 1.114 350.1.13.10 4.2.7.2.686 [id number] [facility] 2023-07-27 09:59:00 2023-07-27 13:33:00 Emergency X DL LOWE [facility] E[facility] [id number] [facility] 2023-07-27 09:59:00 2023-07-27 13:33:00 Emergency Dl Lowe [facility] 1.114 350.1.13.10 4.2.7.2.686 [id number] [facility] 2023-07-26 09:00:00 2023-07-26 09:27:31 Outpatient R OBI-ANDRZEJ [facility] [id number] [facility] 2023-07-26 09:00:00 2023-07-26 09:27:31 Office Visit Obi-Andrzej Goetz [facility] 1.114 350.1.13.10 4.2.7.2.686 [id number] [facility] 2023-07-18 14:30:00 2023-07-18 14:30:00 Outpatient R NIRUCHETPEPPERDERIK ALCOCER [facility]RELL [facility] [id number] [facility] 2023-07-18 10:30:00 2023-07-18 10:30:00 Outpatient R NIRUCHETPEPPERCARLYN DERRELLMARTÍN MOHIT [facility] [id number] [facility] 2023-07-17 14:00:00 2023-07-17 14:15:00 Wait Staff Visit 2, [facility] 1.2.840.114 350.1.13.10 4.2.7.2.686 [id number] [facility] 2023-07-17 13:20:00 2023-07-17 13:51:23 Outpatient R OBI-ANDRZEJ GOETZ OBI-BISHNU [facility] [id number] [facility] 2023-07-17 13:20:00 2023-07-17 13:51:23 Office Visit Obmarla-Andrzej Goetz [facility] 1.2.840.114 350.1.13.10 4.2.7.2.686 [id number] [facility] 2023-07-17 00:00:00 2023-07-17 00:00:00 Orders Only Doctor Unassigned, [place] [id number] 350.1.13.10 4.2.7.2.686 [id number] [id number] [facility] 2023-07-17 00:00:00 2023-07-17 00:00:00 Telephone Derik Rueda [facility] [id number] 350.1.13.10 4.2.7.2.686 [id number] 134 [id number] [facility] 2020-01-08 00:00:00 2020-01-08 00:00:00 Telephone Saloni Ricardo [facility] [id number] 350.1.13.10 4.2.7.2.686 [id number] 134 [id number] [facility] 2020-01-02 14:52:26 2020-01-02 15:51:41 Office Visit Saloni Ricardo [facility] 1.2.840.114 350.1.13.10 4.2.7.2.686 [id number] 134 [id number] [facility] 2019-12-26 10:05:48 2019-12-26 10:46:43 Office Visit Nataly Rios [facility] 1.2.840.114 350.1.13.10 4.2.7.2.686 [id number] 134 [id number] [facility] 2019-12-26 00:00:00 2019-12-26 00:00:00 Orders Only Doctor Unassigned, [facility] 1.2.840.114 350.1.13.10 4.2.7.2.686 [id number] [id number] [facility] 2019-12-11 01:09:00 2019-12-11 01:09:00 Outpatient [facility] [id number] [facility] 2019-12-10 15:15:00 2019-12-10 15:15:00 Outpatient [facility] [id number] [facility] Results Test Description Test Time Test Comments [...] this study and agree with theabove report. [facility]:44[facility]05* Test Item Value Reference Range Interpretation Comme nts LIPASE (test code = 7441672581) 66 U/L 0-220 Lab Interpretation (test cod e = 28032-5) [facility] [id number] 22:33:05* Test Item Value Reference Range Interpretation [...] 34.3 g/dL 31.6-35.1 RDW-SD (test code = 18485-2) 40.4 fL 39.0-49.9 RDW-CV (test code = 788-0) 12.7 % 12.0-15.5 PLT (test code = 777-3) 361 166-358 H MPV (test code = 56485-9) 10.3 fL 9.5-12.9 NRBC/100 WBC (test code = 5212860604) 0.0 0.0-10.0 NRBC x10^3 (test code = 9195726248) See_Comment [Automated message] The system which generated this result transmitted reference range: 10*3/?L. The reference range was not used to interpret this result as normal/abnormal. GRAN MAT (NEUT) % (test code = 770-8) 88.4 % IMM GRAN % (test code = 4179554055) 0.40 % LYMPH % (test code = 736-9) 7.7 % MONO % (test code = 5905-5) 3.2 % EOS % (test code = 713-8) 0.1 % BASO % (test code = 706-2) 0.2 % GRAN MAT x10^3(ANC) (test code = 7694334889) 14.51 10*3/uL 1.88-7.09 H IMM GRAN x10^3 (test code = 3783538677) 0.07 10*3/uL 0.00-0.06 H LYMPH x10^3 (test code = 731-0) 1.27 10*3/uL 1.32-3.29 L MONO x10^3 (test code = 742-7) 0.53 10*3/uL 0.33-0.92 EOS x10^3 (test code = 711-2) 0.03-0.39 L BASO x10^3 (test code = 704-7) 0.03 10*3/uL 0.01-0.07 Lab Interpretation (test code = 04626-9) [facility]normal [facility] w [id number] 13:52:55EXAM: CT ABDOMEN PELVIS W CONTRAST HISTORY: [...] the right flank likely due to medication injection.General acute hospital with [id number] 12:38:04* Test Item Value Reference Range Interpretation [...] 33.6 g/dL 31.6-35.1 RDW-SD (test code = 03247-0) 41.5 fL 39.0-49.9 RDW-CV (test code = 788-0) 12.8 % 12.0-15.5 PLT (test code = 777-3) 305 166-358 MPV (test code = 04681-6) 10.6 fL 9.5-12.9 NRBC/100 WBC (test code = 0747662635) 0.0 0.0-10.0 NRBC x10^3 (test code = 3144994465) See_Comment [Automated messa ge] The system which generated this result transmitted reference range: 10*3/?L. The reference range was not used to interpret this result as normal/abnormal. GRAN MAT (NEUT) % (test code = 770-8) 72.4 % IMM GRAN % (test code = 6239601773) 0.30 % LYMPH % (test code = 736-9) 21.0 % MONO % (test code = 5905-5) 5.9 % EOS % (test code = 713-8) 0.2 % BASO % (test code = 706-2) 0.2 % GRAN MAT x10^3(ANC) (test code = 1859215794) 9.01 10*3/uL 1.88-7.09 H IMM GRAN x10^3 (test code = 8010257258) 0.04 10*3/uL 0.00-0.06 LYMPH x10^3 (test code = 731-0) 2.61 10*3/uL 1.32-3.29 MONO x10^3 (test code = 742-7) 0.73 10*3/uL 0.33-0.92 EOS x10^3 (test code = 711-2) 0.03-0.39 L BASO x10^3 (test code = 704-7) 0.03 10*3/uL 0.01-0.07 Lab Interpretation (test code = 48525-1) [facility]normal [facility] Metabolic [id number] 12:33:00* Test Item Value Reference Range Interpretation Comme nts NA (test code = 2854295966) 139 mmol/L 135-145 K (test code = 0813971834) 3.6 mmol/L 3.5-5.0 CL (test code = 9661297589) 105 mmol/L 98-108 CO2 TOTAL (test code = 4493669569) 28 mmol/L 23-31 AGAP (test code = 8431639854) 6 2-16 BUN (test code = 7777951175) 14 mg/dL 7-23 GLUCOSE (test code = 9617569806) 119 mg/dL 70-110 H CREATININE (test code = 2160-0) 0.59 mg/dL 0.50-1.04 TOTAL BILI (test code = 5531491145) 0.2 mg/dL 0.1-1.1 CALCIUM (test code = 6289200326) 9.0 mg/dL 8.6-10.6 T PROTEIN (test code = 1597006577) 7.5 g/dL 6.3-8.2 ALBUMIN (test code = 6463365604) 4.5 g/dL 3.5-5.0 ALK PHOS (test code = 8545065308) 64 U/L 34-122 ALTv (test code = 1742-6) 18 U/L 5-35 AST(SGOT) (test code = 1666860026) 20 U/L 13-40 eGFR (test code = 45266-2) 129.3 mL/min/1.73m2 CKD-EPI eGFR (2020). Assuming creatinine has been stable day-to-day for at least three months, the eGFR indicates Category G1 (>= 90 mL/min/1.73 m2) Lab Interpretation (test code = 23303-4) Abnormal [facility], [id number] 12:32:59* Test Item Value Reference Range Interpretation Comme [facility] LIPASE (test code = 3905234245) 42 U/L 0-220 Lab Interpretation (test cod e = 97854-1) Normal [facility] [id number] 11:47:00* Test Item Value Reference Range Interpretation Comme nts POCT PREG (test code = 1605) Negative On board controls acceptable with C Line (test code = 3574) Yes POCT PREG LOT # (test code = 3575) [id number] POCT PREG TEST DATE ( test code = 3576) 11/25/2025 Lab Interpretation (test cod e = 79890-3) Normal [facility] [id number] 21:15:00* Test Item Value Reference Range Interpretation Comme nts POCT PREG (test code = 1605) Negative On board controls acceptable with C Line (test code = 3574) Yes POCT PREG LOT # (test code = 3575) POCT PREG TEST DATE ( test code = 3576) [facility] [id number] 21:15:00* Test Item Value Reference Range Interpretation Comme nts POCT PREG (test code = 1605) Negative On board controls acceptable with C Line (test code = 3574) Yes POCT PREG LOT # (test code = 3575) POCT PREG TEST DATE ( test code = 3576) [facility]
[2024-11-21 19:49] LABS: Absolute Lymphocytes (CBC) 1.9 K/uL (0.7-4.9); Absolute Monocytes 0.5 K/uL (0.1-1.3); Absolute Neutrophil 7.2 K/uL (1.8-8.0); Basophils % 0.5 % (0-1.3); Eosinophils % 0.3 % (0-4.4); Hematocrit 40.8 % (36.0-45.0); Lymphocytes % 19.5 % (15.3-44.8); MCH 29.9 pg (27.0-35.0); MCHC 34.4 g/dL (32.0-36.0); MCV 86.7 fL (80-100); MPV 8.1 fL (7.6-11.3); Monocytes % 5.2 % (3.3-12.3); Neutrophils % 74.5 % (41.7-73.7); Nucleated Red Blood Cells % 0.1 % (0-0); Platelets 349 thou/uL (152-406); Red Cell Distribution Width 14.1 % (12.1-15.2)
[2024-11-21] MEDS ORDERED: LORazepam 2 MG/ML VIAL ONE (19:51)
[2024-11-21 20:15] LABS: PT Prothrombin Time 13.4 SECONDS (9.4-12.5); PTT, Activated Partial Thromb 32.2 SECONDS (24.3-36.9); Protime INR 1.2
[2024-11-21 20:29] LABS: ALT/SGPT 44 U/L (13-56); AST/SGOT 31 U/L (15-37); Albumin 3.7 g/dL (3.4-5.0); Albumin/Globulin Ratio 0.9 (1.1-1.8); Alkaline Phosphatase 52 U/L (45-117); Anion Gap 12.9 mEq/L (5.0-15.0); BUN Blood Urea Nitrogen 13 mg/dL (7-18); Bicarbonate 24 mEq/L (21-32); Bilirubin Total 0.5 mg/dL (0.2-1.0); Glomerular Filtration Rate 122 ml/min (=/>90); Glucose Level 135 mg/dL (74-106); Lipase 23 U/L (13-75); Magnesium 2.2 mg/dL (1.6-2.4); NT PRO-BNP 14 pg/mL (<125); Potassium 2.9 mEq/L (3.5-5.1); Protein, Total 7.7 g/dL (6.4-8.2); Sodium Level 137 mEq/L (136-145); Troponin High Sensitivity 4.2 pg/mL (<58.9)
[2024-11-21 20:30] LABS: Bilirubin Direct < 0.2 mg/dL (0-0.2); Bilirubin Indirect, Calculated 0.3 mg/dL (0.2-0.8)
--- NOTE | 2024-11-21 20:50 | RAD REPORT ---
EXAMINATION: CTA CHEST PE CLINICAL INDICATION: CHEST PAIN TECHNIQUE: This examination was performed according to an angiographic protocol with 3D post-processi ng. This involves 3D reconstructions, MIPs, volume rendered images and/or shaded surface rendering. One or more of the following dose reduction techniques were used: Automated exposure control, adjustm ent of the mA and/or kV according to patient size, and/or iterative reconstruction. Unless otherwise specified, incidental findings do not require dedicated imaging follow-up. COMPARISON: 11/22/2022 FINDINGS: PULMONARY ARTERIES: Normal caliber. No evidence of pulmonary emboli to the subsegmental level. THORACIC AORTA: Normal caliber and configuration. LUNGS: Patchy opacity in the right lung base suspicious for infection/pneumonia. PLEURA: No pleural effusion. No pneumothorax. MEDIASTINUM AND LYMPH NODES: No mediastinal mass or fluid collection. Normal size mediastinal, hilar, and axillary lymph nodes. OSSEOUS STRUCTURES AND CHEST WALL: Intact. UPPER ABDOMEN: No significant abnormalities. IMPRESSION: No evidence of pulmonary emboli to the subsegmental level. Patchy opacity in the right lung base suspicious for infection/pneumonia.
[2024-11-21] MEDS ORDERED: CEFTRIAXONE 1000 MG/VIAL ONE (21:41)
[2024-11-21] MEDS ORDERED: AZITHROMYCIN 500 MG INJ IVPB ONE (21:41)
[2024-11-21] MEDS ORDERED: POTASSIUM 25 MEQ EFFERV TAB ONE (21:41)
[2024-11-21] MEDS ORDERED: NA CHLORIDE 0.9% 250 ML ONE (21:42)
[2024-11-21] MEDS ORDERED: PROMETHAZINE INJ 25 MG/ML AMP ONE (22:20)
--- NOTE | 2024-11-21 23:04 | EDPHYS ---
Physician Documentation [facility] Name: Bert Reyes Age: 24 yrs Sex: Female : 2000 Arrival Date: 11/21/2024 Time: 18:32 Bed Treatment Private MD: ED Physician Abhay Merida HPI: 11/22 01:00 This 24 yrs old Female presents to ER via Ambulatory with complaints of sb4 Shortness Of Breath. 01:00 Patient reports intermittent nausea and vomiting x 1 month. She was seen here last week sb4 and diagnosed with pneumonia, discharged with Augmentin and antiemetics. Reports compliance with the medications but states that she has not improved. states that she had an episode of vomiting that was so intense today that she felt like she could not breathe. She reports having a lot of chest pain ever since. She is hyperventilating and crying in triage. 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 - Infectious Disease History:: Denies. - Social history:: Smoking status: Reported history of juuling and/or vaping. ROS: 11/22 01:00 Constitutional: Negative for fever, chills, and weight loss, sb4 Cardiovascular: Positive for chest pain, Abdomen/GI: Positive for nausea and vomiting, All other systems are negative, Exam: 01:00 Head/Face: Normocephalic, atraumatic. Eyes: Extra-ocular motions intact. Periorbital sb4 areas with no swelling, redness, or edema. ENT: Mucous membranes moist. Abdomen/GI: Soft, non-tender, no distension. Skin: Warm, dry with normal turgor. Normal color with no rashes, no lesions, and no evidence of cellulitis. 01:00 Constitutional: The patient appears alert, awake, anxious, restless, uncomfortable, 01:00 Cardiovascular: Rate: tachycardic, Rhythm: regular, 01:00 Respiratory: the patient does not display signs of respiratory distress, Respirations: shallow respirations, tachypnea, Breath sounds: are clear throughout, Vital Signs: 11/21 18:39 BP 148 / 97; Pulse 109; Resp 22; Temp 97.9(O); Pulse Ox 97% on R/A; Weight 113.4 kg; ap3 20:00 BP 127 / 112; Pulse 104; Resp 22; Pulse Ox 98% ; cp4 21:00 BP 140 / 88; Pulse 101; Resp 20; Pulse Ox 97% ; cp4 22:00 BP 133 / 98; Pulse 94; Resp 18; Pulse Ox 97% ; cp4 23:00 BP 146 / 98; Pulse 92; Resp 18; Pulse Ox 98% ; cp4 18:39 patient crying ap3 MDM: 18:49 Medical Screening Exam initiated sb4 11/22 01:02 Antibiotic administration: The patient is discharged and will get outpatient sb4 antibiotics. Data reviewed: vital signs, nurses notes, lab test result(s), EKG, radiologic studies, and as a result, I will discharge patient. Counseling: I had a detailed discussion with the patient and/or guardian regarding the historical points, exam findings, and any diagnostic results supporting the discharge/admit diagnosis, the presence of at least one elevated blood pressure reading (>120/80) during this emergency department visit, lab results, radiology results, the need for outpatient follow up, for definitive care, to return to the emergency department if symptoms worsen or persist or if there are any questions or concerns that arise at home. 11/21 18:50 Order name: BMP; Complete Time: 20:30 sb4 11/21 18:50 Order name: CBC with Diff; Complete Time: 19:54 sb4 11/21 18:50 Order name: Hepatic Function; Complete Time: 20:30 sb4 11/21 18:50 Order name: Lipase; Complete Time: 20:30 sb4 11/21 18:50 Order name: Magnesium; Complete Time: 20:30 sb4 11/21 18:50 Order name: NT PRO-BNP; Complete Time: 20:30 sb4 11/21 18:50 Order name: PT-INR; Complete Time: 20:15 sb4 11/21 18:50 Order name: Ptt, Activated; Complete Time: 20:15 sb4 11/21 18:50 Order name: Troponin HS; Complete Time: 20:30 sb4 11/21 18:50 Order name: Test, Serum; Complete Time: 20:07 sb4 11/21 18:50 Order name: CT Chest For PE Angio; Complete Time: 20:56 sb4 11/21 18:50 Order name: Cardiac monitoring; Complete Time: 19:27 sb4 11/21 18:50 Order name: EKG - Nurse/Tech; Complete Time: 19:27 sb4 11/21 18:50 Order name: IV Saline Lock; Complete Time: 19:43 sb4 11/21 18:50 Order name: Labs collected and sent; Complete Time: 19:43 sb4 11/21 18:50 Order name: O2 Per Protocol; Complete Time: 19:27 sb4 11/21 18:50 Order name: O2 Sat Monitoring; Complete Time: 19:27 sb4 11/21 19:56 Order name: Misc. Order: recollect labs; Complete Time: 19:59 kmf EC/02 19:33 Rate is 78 beats/min. Rhythm is regular, Normal Sinus Rhythm. AR interval is normal at sb4 132 msec. QRS interval is normal at 74 msec. QT interval is normal at 408 msec. No Q waves. T waves are Normal. No ST changes noted. Clinical impression: Normal ECG. Interpreted by me. Reviewed by me. Administered Medications: 19:53 Drug: Ativan IVP 1 mg IVP once Route: IVP; Site: left antecubital; cp4 21:55 Follow up: Response: No adverse reaction cp4 21:54 Drug: Potassium PO Effervescent Tablet 50 mEq PO once; dissolve in 4 ounces of water or cp4 juice Route: PO; 22:56 Follow up: Response: No adverse reaction cp4 21:54 Drug: AZITHromycin IVPB 500 mg IVPB once over 1 hrs; (mix in 250 mL NS) Route: IVPB; cp4 Infused Over: 1 hrs; Site: left antecubital; 22:56 Follow up: IV Status: Completed infusion cp4 21:54 Drug: Rocephin IV 1 grams IV at calculated rate once; Given slow IV push per pharmacy cp4 instructions Route: IV; Rate: calculated rate; Site: left antecubital; 21:54 Follow up: IV Status: Completed infusion cp4 22:28 Drug: Promethazine IVP 12.5 mg IVP once Route: IVP; Site: left antecubital; cp4 22:56 Follow up: Response: No adverse reaction; Nausea is decreased cp4 Disposition Summary: 11/21/24 23:04 Discharge Ordered Notes: Location: Home sb4 Problem: new sb4 Symptoms: have improved sb4 Condition: Stable sb4 Diagnosis - Pneumonia, unspecified organism sb4 - Nausea with vomiting, unspecified sb4 Followup: sb4 - With: Emergency Department - When: As needed - Reason: Trouble breathing, Worsening of condition Discharge Instructions: - Discharge Summary Sheet sb4 - Nausea and Vomiting, Adult sb4 - Community-Acquired Pneumonia, Adult sb4 Forms: - Antibiotic Education sb4 - Patient Portal Instructions sb4 - Leadership Thank You Letter sb4 Prescriptions: - azithromycin 250 mg Oral tablet - take 1 tablet ORAL route daily for 4 days start on day 2 of therapy; 4 tablet; sb4 Refills: 0, Product Selection Permitted - Reglan 10 mg Oral tablet - take 1 tablet ORAL route every 6 hours . take 30 minutes before meals and at sb4 bedtime; 20 tablet; Refills: 0, Product Selection Permitted - levofloxacin 500 mg Oral tablet - take 1 tablet ORAL route once daily for 7 days; 7 tablet; Refills: 0, Product sb4 Selection Permitted Addendum: 11/26/2024 15:31 Co-signature as Attending Physician, Abhay Merida MD I agree with the assessment and c corona plan of care. Signatures: Dispatcher [employer] Abhay Oakes MD MD cha Prokisch, Amanda, RN RN ap3 Vane Michel, PAPavelC PA-C sb4 Asiya Johnson 4 Sofiya Tolliver [facility] Corrections: (The following items were deleted from the chart) 11/21 18:50 18:50 BASIC METABOLIC PANEL+C.LAB.BRZ ordered. EDMS EDMS 18:50 18:50 CBC+H.LAB.BRZ ordered. EDMS EDMS 18:50 18:50 HEPATIC FUNCTION+C.LAB.BRZ ordered. EDMS EDMS 18:50 18:50 LIPASE+C.LAB.BRZ ordered. EDMS EDMS 18:50 18:50 MAGNESIUM+C.LAB.BRZ ordered. EDMS EDMS 18:50 18:50 PROBNP+C.LAB.BRZ ordered. EDMS EDMS 18:50 18:50 PROTIME (+INR)+COAG.LAB.BRZ ordered. EDMS EDMS 18:50 18:50 PTT, ACTIVATED+COAG.LAB.BRZ ordered. EDMS EDMS 18:50 18:50 Troponin High Sensitivity+C.LAB.BRZ ordered. EDMS EDMS 18:50 18:50 TEST, SERUM+SC.LAB.BRZ ordered. EDMS EDMS 18:50 18:50 Chest For PE Angio+CT.RAD.BRZ ordered. EDMS EDMS
--- NOTE | 2024-11-21 23:04 | ER ---
Nurse's Notes [facility] Name: Bert Reyes Age: 24 yrs Sex: Female : 2000 Arrival Date: 11/21/2024 Time: 18:32 Bed Treatment Private MD: Diagnosis: Pneumonia, unspecified organism;Nausea with vomiting, unspecified Presentation: 11/21 18:39 Chief complaint: Patient states: she has been feeling sick off and on for approx one ap3 month. patient states she started vomiting today and started feeling like she couldn't breath. Coronavirus screen: At this time, the client does not indicate any symptoms associated with coronavirus-19. Ebola Screen: No symptoms or risks identified at this time. Initial Sepsis Screen: Does the patient meet any 2 criteria? HR > 90 bpm. Does the patient have a suspected source of infection? No. Patient's initial sepsis screen is negative. Risk Assessment: Do you want to hurt yourself or someone else? Patient reports no desire to harm self or others. Onset of symptoms is unknown. 18:39 Method Of Arrival: Ambulatory ap3 18:39 Acuity: SYLVIA 3 ap3 Triage Assessment: 18:41 General: Appears distressed, uncomfortable, Behavior is crying. Pain: Complains of pain ap3 in chest Quality of pain is described as burning. Neuro: Level of Consciousness is awake, alert, obeys commands, Oriented to person, place, time, situation, Appropriate for age. Cardiovascular: Patient's skin is warm and dry. Respiratory: Reports shortness of breath Airway is patent Respiratory effort is even, unlabored, Respiratory pattern is regular, symmetrical, tachypnea Onset: The symptoms/episode began/occurred today, the patient has mild shortness of breath. GI: Reports nausea, vomiting. 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 - Infectious Disease History:: Denies. - Social history:: Smoking status: Reported history of juuling and/or vaping. Screenin:43 [facility] ED Fall Risk Assessment (Adult) History of falling in the last 3 months, ap3 including since admission No falls in past 3 months (0 pts) Confusion or Disorientation No (0 pts) Intoxicated or Sedated No (0 pts) Impaired Gait No (0 pts) Mobility Assist Device Used No (0 pt) Altered Elimination No (0 pt) Score/Fall Risk Level 0 - 2 = Low Risk Oriented to surroundings, Maintained a safe environment, Educated pt \T\ family on fall prevention, incl call for assistance when getting out of bed, Assessed \T\ reinforced patient's understanding of fall precautions, Hourly rounding (assess needs \T\ fall precautionary measures) done, Used ambulatory aids as needed (educated on \T\ assisted with), Used gait belt as appropriate. Abuse screen: Denies threats or abuse. Nutritional screening: No deficits noted. Tuberculosis screening: No symptoms or risk factors identified. Assessment: 20:00 General: Appears in no apparent distress. uncomfortable, Behavior is calm, cooperative, cp4 appropriate for age. Pain: Complains of pain in chest Pain does not radiate. Pain currently is 10 out of 10 on a pain scale. Neuro: Level of Consciousness is awake, alert, obeys commands, Oriented to person, place, time, situation. Cardiovascular: Patient's skin is warm and dry. Rhythm is sinus rhythm. Respiratory: Airway is patent Respiratory effort is even, unlabored, Breath sounds are clear bilaterally. GI: No signs and/or symptoms were reported involving the gastrointestinal system. : No signs and/or symptoms were reported regarding the genitourinary system. EENT: No signs and/or symptoms were reported regarding the EENT system. Derm: No signs and/or symptoms reported regarding the dermatologic system. Musculoskeletal: No signs and/or symptoms reported regarding the musculoskeletal system. 21:00 Reassessment: Patient appears in no apparent distress at this time. Patient and/or cp4 family updated on plan of care and expected duration. Pain level reassessed. Patient is alert, oriented x 3, equal unlabored respirations, skin warm/dry/pink. 22:00 Reassessment: Patient appears in no apparent distress at this time. Patient and/or cp4 family updated on plan of care and expected duration. Pain level reassessed. Patient is alert, oriented x 3, equal unlabored respirations, skin warm/dry/pink. 23:00 Reassessment: Patient appears in no apparent distress at this time. Patient and/or cp4 family updated on plan of care and expected duration. Pain level reassessed. Patient is alert, oriented x 3, equal unlabored respirations, skin warm/dry/pink. Vital Signs: 18:39 BP 148 / 97; Pulse 109; Resp 22; Temp 97.9(O); Pulse Ox 97% on R/A; Weight 113.4 kg; ap3 20:00 BP 127 / 112; Pulse 104; Resp 22; Pulse Ox 98% ; cp4 21:00 BP 140 / 88; Pulse 101; Resp 20; Pulse Ox 97% ; cp4 22:00 BP 133 / 98; Pulse 94; Resp 18; Pulse Ox 97% ; cp4 23:00 BP 146 / 98; Pulse 92; Resp 18; Pulse Ox 98% ; cp4 18:39 patient crying ap3 ED Course: 18:32 Patient arrived in ED. im 18:37 Vane Michel [facility] sb[facility] 18:37 Abhay Merida MD is Attending Physician. sb4 18:41 Triage completed. ap3 18:43 Arm band placed on left wrist. ap3 19:01 Radiology exam delayed due to lab results not completed at this time. (BUN/Creatinine) nj test not completed at this time. IV insertion attempt and/or patient not having appropriate IV at this time. 19:17 Asiya Johnson is Primary Nurse. cp4 19:27 EKG done, by anesthesiology technologist. af3 19:43 Inserted saline lock: 20 gauge in left antecubital area, using aseptic technique. Blood af3 collected. Flushed with 10 mL NS. 20:01 Bed in low position. Call light in reach. Side rails up X2. cp4 20:01 No provider procedures requiring assistance completed. Lab(s) recollected, by me, sent cp4 to lab. 20:28 CT Chest For PE Angio In Process Unspecified. EDMS 23:19 Provided Education on: pneumonia and vomiting.. cp4 23:19 intact, bleeding controlled, No redness/swelling at site. Pressure dressing applied. cp4 Administered Medications: 19:53 Drug: Ativan IVP 1 mg IVP once Route: IVP; Site: left antecubital; cp4 21:55 Follow up: Response: No adverse reaction cp4 21:54 Drug: Potassium PO Effervescent Tablet 50 mEq PO once; dissolve in 4 ounces of water or cp4 juice Route: PO; 22:56 Follow up: Response: No adverse reaction cp4 21:54 Drug: AZITHromycin IVPB 500 mg IVPB once over 1 hrs; (mix in 250 mL NS) Route: IVPB; cp4 Infused Over: 1 hrs; Site: left antecubital; 22:56 Follow up: IV Status: Completed infusion cp4 21:54 Drug: Rocephin IV 1 grams IV at calculated rate once; Given slow IV push per pharmacy cp4 instructions Route: IV; Rate: calculated rate; Site: left antecubital; 21:54 Follow up: IV Status: Completed infusion cp4 22:28 Drug: Promethazine IVP 12.5 mg IVP once Route: IVP; Site: left antecubital; cp4 22:56 Follow up: Response: No adverse reaction; Nausea is decreased cp4 Medication: 20:01 VIS not applicable for this client. cp4 Outcome: 23:04 Discharge ordered by . sb4 23:19 Discharged to home ambulatory, cp4 23:19 Condition: stable 23:19 Discharge instructions given to patient, family, Instructed on discharge instructions, follow up and referral plans. medication usage, Demonstrated understanding of instructions, follow-up care, medications, Prescriptions given X 3, 23:23 Patient left the ED. cp4 Signatures: Dispatcher [employer] EDMS Matthew Gómez Amanda RN RN ap3 Vane Michel, PAPiter PAPavelC sb4 Justine López Christina cp4 Lorena Griffin
[2024-11-22 06:46] VITALS: TEMP 97.9
[2024-11-22 06:51] VITALS: BP 146/98; O2SAT 98
--- NOTE | 2024-11-22 12:41 | EKG ---
Test Date: 2024-11-21 Test Time: 19:22:28 Electrical Installer: AF MEASUREMENT RESULTS: Intervals: Rate: 78 SD: 132 QRSD: 74 QT: 408 QTc: 465 [place]: P: 48 SD: 132 QRS: 73 T: 48 INTERPRETIVE STATEMENTS: Normal sinus rhythm Normal ECG No previous ECG available for comparison Electronically Signed On 11-22-24 12:39:46 SEPARATOR OPERATOR by Eb Parish
== END 2024-11-21 23:23 | disposition home or self-care (01) ==
LOC: ER 18:32
DX: J18.9 Pneumonia, unspecified organism (principal); R11.2 Nausea with vomiting, unspecified; Z87.891 Personal history of nicotine dependence
CPT/HCPCS: 96365; 93005; 85025; 80048; 36415; 83735; 84703; 85610; 80076; 85730; 84484; 83690; 83880; 71275; 96375; 99284; Q9967; J2550; J7050; J0696